=== PATIENT | male | born 1975 | race Caucasian/White ===

== ENCOUNTER 2021-02-03 10:45 | Outpatient (REF) | payer OTHER, SELFPAY | END 2021-02-03 10:46 | disposition home or self-care (01) | LOC: HO.LNP 10:45 | PROVIDERS: Visit Provider Internal Medicine | DX: Z13.89 Encounter for screening for other disorder (principal) ==

== ENCOUNTER 2021-02-03 11:00 | Outpatient (REF) | payer OTHER, SELFPAY ==
[2021-02-03 11:03] LABS: MANUAL DIFF FLAG NO
[2021-02-03 11:17] LABS: Basophils Percent Auto 0.5 % (0-2); Eosinophils Absolute Auto 0.2 X10*3/uL (0.0-0.4); Eosinophils Percent Auto 2.8 % (0-4); Hematocrit 44.5 % (42-52); Hemoglobin 14.4 g/dl (14.0-18.0); Imm Gran Abs Auto 0.02 X10*3/uL (0.00-0.03); Imm Gran Pct Auto 0.3 % (0.0-0.4); Lymphocytes Absolute Auto 1.6 X10*3/uL (1.2-4.9); Lymphocytes Percent Auto 19.9 % (20-40); Mean Corpuscular HGB Conc 32.4 g/dl (31.0-36.0); Mean Corpuscular Hemoglobin 29.4 pg (27.0-33.0); Mean Platelet Volume 11.7 fL (9.4-12.4); Monocytes Absolute Auto 0.7 X10*3/uL (0.1-1.2); Monocytes Percent Auto 8.5 % (2-11); Neutrophils Absolute Auto 5.3 X10*3/uL (2.0-8.3); Platelet Count 226 X10*3/uL (160-400); Red Blood Count 4.89 X10*6/uL (4.60-5.80); Red Cell Distribution Width 13.2 % (11.0-16.0); White Blood Count 7.8 X10*3/uL (4.8-10.8)
[2021-02-03 11:46] LABS: Glucose Urine UA NEG (NEG); Leukocyte Esterase Urine NEG (NEG); Nitrite Urine NEG (NEG); Specific Gravity - Urine 1.015 (1.005-1.025); Urine Blood NEG (NEG); Urine Ketones NEG (NEG); Urine Protein NEG (NEG-TRACE)
[2021-02-03 12:01] LABS: Appearance Urine CLEAR; Color Urine YELLOW
[2021-02-03 12:58] LABS: PSA,Total (Free>4and<10) 1.61 ng/mL (0.00-4.00)
[2021-02-03 13:09] LABS: Alanine Aminotransferase 17 U/L (0-40); Albumin Level 4.3 g/dL (3.5-5.0); Alkaline Phosphatase 51 U/L (39-117); Anion Gap 13 (12-20); Aspartate Amino Transferase 18 U/L (5-37); Bilirubin Total 0.6 mg/dL (0.0-1.0); Blood Urea Nitrogen 16 mg/dL (9-16); Calcium 9.2 mg/dL (8.4-10.2); Carbon Dioxide 27 mmol/L (22-29); Chloride 103 mmol/L (96-108); Cholesterol 200 mg/dL; Estimated Glomerular Filt Rate > 60; Glucose Fasting 94 mg/dL (60-99); HDL Cholesterol 65 mg/dL; LDL Cholesterol Calculated 125 mg/dl; Potassium 4.3 mmol/L (3.3-5.1); Sodium 139 mmol/L (135-145); Total Protein 6.9 g/dL (6.5-8.0); Triglycerides 52 mg/dL
== END 2021-02-03 11:01 | disposition home or self-care (01) ==
LOC: HO.LNP 11:00
PROVIDERS: Visit Provider Internal Medicine
DX: Z00.00 Encounter for general adult medical examination without abnormal findings (principal); Z12.5 Encounter for screening for malignant neoplasm of prostate; E78.00 Pure hypercholesterolemia, unspecified; R73.9 Hyperglycemia, unspecified
CPT/HCPCS: 80053; 80061; 81003; 84153; 85025

== ENCOUNTER 2022-02-03 10:47 | Outpatient (REF) | payer OTHER, SELFPAY ==
[2022-02-03 10:52] LABS: MANUAL DIFF FLAG NO
[2022-02-03 11:14] LABS: Basophils Percent Auto 0.4 % (0-2); Eosinophils Absolute Auto 0.2 X10*3/uL (0.0-0.4); Eosinophils Percent Auto 2.5 % (0-4); Hematocrit 43.3 % (42.0-52.0); Hemoglobin 14.1 g/dl (14.0-18.0); Imm Gran Abs Auto 0.03 X10*3/uL (0.00-0.03); Imm Gran Pct Auto 0.4 % (0.0-0.4); Lymphocytes Absolute Auto 1.6 X10*3/uL (1.2-4.9); Lymphocytes Percent Auto 22.2 % (20-40); Mean Corpuscular HGB Conc 32.6 g/dl (31.0-36.0); Mean Corpuscular Hemoglobin 29.4 pg (27.0-33.0); Mean Corpuscular Volume 90.2 fL (80.0-98.0); Mean Platelet Volume 11.4 fL (9.4-12.4); Monocytes Absolute Auto 0.7 X10*3/uL (0.1-1.2); Monocytes Percent Auto 9.5 % (2-11); Neutrophils Absolute Auto 4.6 x10*3/uL (2.0-8.3); Platelet Count 218 X10*3/uL (160-400); Red Cell Distribution Width 12.9 % (11.0-16.0); White Blood Count 7.1 X10*3/uL (4.8-10.8)
[2022-02-03 11:20] LABS: Appearance Urine CLEAR; Color Urine YELLOW; Glucose Urine UA NEG (NEG); Leukocyte Esterase Urine NEG (NEG); Nitrite Urine NEG (NEG); Specific Gravity - Urine 1.025 (1.005-1.025); Urine Blood NEG (NEG); Urine Ketones NEG (NEG); Urine Protein NEG (NEG-TRACE)
[2022-02-03 11:26] LABS: Alanine Aminotransferase 19 U/L (0-40); Albumin Level 4.1 g/dL (3.5-5.0); Alkaline Phosphatase 49 U/L (39-117); Anion Gap 13 (12-20); Aspartate Amino Transferase 17 U/L (5-37); Bilirubin Total 0.3 mg/dL (0.0-1.0); Blood Urea Nitrogen 17 mg/dL (9-16); Calcium 9.2 mg/dL (8.4-10.2); Carbon Dioxide 26 mmol/L (22-29); Chloride 105 mmol/L (96-108); Cholesterol 204 mg/dL; Estimated Glomerular Filt Rate > 60; Glucose Fasting 96 mg/dL (60-99); HDL Cholesterol 58 mg/dL; LDL Cholesterol Calculated 136 mg/dl; Potassium 4.3 mmol/L (3.3-5.1); Sodium 140 mmol/L (135-145); Total Protein 6.8 g/dL (6.5-8.0); Triglycerides 54 mg/dL
[2022-02-03 11:49] LABS: PSA,Total (Free>4and<10) 1.52 ng/mL (0.00-4.00)
[2022-02-03 12:17] LABS: Mucus Urine 1+ /LPF; RBC Urine 0 /HPF (0); Squamous Epithelial Cell Urine 1+ /LPF; WBC Urine 0 /HPF (0-4)
== END 2022-02-03 10:48 | disposition home or self-care (01) ==
LOC: HO.LNP 10:47
PROVIDERS: Visit Provider Internal Medicine
DX: Z00.00 Encounter for general adult medical examination without abnormal findings (principal); E78.00 Pure hypercholesterolemia, unspecified; Z12.5 Encounter for screening for malignant neoplasm of prostate
CPT/HCPCS: 80053; 80061; 81001; 84153; 85025

== ENCOUNTER 2022-09-15 08:00 | Day surgery (SDC) | payer OTHER, SELFPAY ==
--- NOTE | 2022-09-14 10:48 | HO.ANESPROP2 ---
Documented by User: Татьяна Jackson NP 09/14/22 10:49 HPI - Anesthesia Eval Consult details Narrative: 47yo M for Colonoscopy PMFSH Past Medical History Medical History Arthritis Diverticulitis Kidney stones Surgical History Surgical History History of arthroscopy of right knee Social History Social History Patient Tobacco Use Status: Former Tobacco user Quit Date: 2004 Tobacco use type: Cigarette Cigarettes Per Day: 5 Years Smoked: 5 Smoked in Last 30 Days: No Use of substances other than those prescribed or required for medical reasons: No Are you DNR?: No Advance Directives: No Advance Directives Information Provided: Yes Meds Allergies Allergy/AdvReac Type Severity Reaction Status Date / Time No Known Allergies Allergy Verified 09/15/22 08:09 Home Medications Medication Instructions Recorded Confirmed Last Taken Type ibuprofen 200 mg tablet (Advil) 600 mg PO DAILY 09/14/22 09/15/22 09/08/22 History Exam Exam Date and Time: September 14, 2022 104 Pertinent Lab Results Pertinent Lab Results: Laboratory Tests 02/03/22 02/03/22 07:15 07:15 WBC 7.1 Hgb 14.1 Hct 43.3 Plt Count 218 Sodium 140 Potassium 4.3 Chloride 105 Carbon Dioxide 26 BUN 17 H Creatinine 1.18 Assessment and Plan Assessment Anesthesia Assessment: Chart Reviewed Documented by User: Aimee Ren MD 09/15/22 09:56 PMF Past Medical History Medical History Arthritis Diverticulitis Kidney stones Functional capacity: independent ambulation Family History Family history of problems with anesthesia: No Surgical History Surgical History History of arthroscopy of right knee History of Problems with Anesthesia: No Social History Social History Patient Tobacco Use Status: Former Tobacco user Quit Date: 2004 Tobacco use type: Cigarette Cigarettes Per Day: 5 Years Smoked: 5 Smoked in Last 30 Days: No Use of substances other than those prescribed or required for medical reasons: No Are you DNR?: No Advance Directives: No Advance Directives Information Provided: Yes Meds Allergies Allergy/AdvReac Type Severity Reaction Status Date / Time No Known Allergies Allergy Verified 09/15/22 08:09 Home Medications Medication Instructions Recorded Confirmed Last Taken Type ibuprofen 200 mg tablet (Advil) 600 mg PO DAILY 09/14/22 09/15/22 09/08/22 History Exam Airway Heart: RRR Lungs: CTA Assessment and Plan Final Anesthetic Review Family History of Problems with Anesthesia: No History of Problems with Anesthesia: No ASA Class: II Final Preanesthetic Review: No Changes in Pt Med Stat, Meds/Allgs Chart Reviewed, Consent Obtained/Reviewed and Anes Risks/Benef Reviewed Patient Risk: Low Procedure Risk: Low Anesthetic Plan Anesthetic Plan: MAC: Disposition: Standard PACU
[2022-09-15 08:14] VITALS: BMI 36.6
[2022-09-15 08:17] VITALS: BP 125/81; PULSE 78; RESP 16; TEMP 36.4; O2SAT 97
[2022-09-15] MEDS: Lactated Ringers 1,000 ML 100 ML IVCONT (08:33)
[2022-09-15 10:20] VITALS: BP 102/69; PULSE 63; RESP 16; TEMP 37.1; O2SAT 95
--- NOTE | 2022-09-15 10:21 | PM.OP ---
Brief Operative Note Date of Service: 09/15/22 Pre-op diagnosis: Screening Post-op diagnosis: other (Occasional sigmoid diverticulosis) Procedure: Colonoscopy to the cecum Surgeon: Chidi Jansen Anesthesia: MAC Was an Insurance Policy Clerk used for this Procedure?: No Estimated blood loss (mL): 0 Pathology: none sent Condition: stable Disposition: PACU
[2022-09-15 10:35] VITALS: BP 127/87; PULSE 66; RESP 18; TEMP 36.5; O2SAT 97
--- NOTE | 2022-09-15 10:43 | OP_ITS ---
SURGEON: Chidi Jansen MD INDICATIONS: The patient presents for evaluation of colorectal cancer screening. Full consent has been obtained from him for this, including risks of bleeding and perforation. PREOPERATIVE DIAGNOSIS: Colorectal cancer screening. POSTOPERATIVE DIAGNOSIS: Colorectal cancer screening, occasional diverticulosis, small internal hemorrhoids. PROCEDURE PERFORMED: Colonoscopy to the cecum. ESTIMATED BLOOD LOSS: COMPLICATIONS: ANESTHESIA: Medication Used: Monitored anesthesia care. ASSISTANTS: SPECIMENS: DESCRIPTION OF PROCEDURE: The patient was placed in the left lateral decubitus position. The digital rectal exam revealed no abnormalities. The Olympus video pediatric colonoscope was entered into the rectum and advanced to the cecum with the assistance of abdominal wall pressure. Once in the cecum, I did identify normal-appearing cecal pouch with appendiceal orifice and a normal-appearing ileocecal valve. The entire cecum and ileocecal valve appeared normal. The scope was slowly withdrawn assessing all mucosal surfaces carefully. Preparation was excellent. I did not visualize any sign of polyps, colitis, nor angiodysplasia. There was an occasional diverticulum in the sigmoid colon. In the rectum, scope was retroflexed, visualizing minimal internal hemorrhoids, but no other pathology. The rectal mucosa appeared normal. The scope was straightened and withdrawn from the patient. He tolerated the procedure well and was returned to the recovery area in stable condition. IMPRESSION: 1. Occasional sigmoid diverticulosis. 2. Small internal hemorrhoids. PLAN: Given today's negative exam, I would recommend a followup colonoscopy in 10 years for further screening. He will, otherwise, see me on a p.r.n. basis. Chidi Jansen MD RMW/MODL / [phone]
--- NOTE | 2022-09-15 12:11 | HO.POSTANES ---
Post Anesthesia Evaluation Post Anesthesia Evaluation Vital Signs: Vital Signs Temp Pulse Resp BP Pulse Ox O2 Del Method 09/15/22 10:35 97.7 F 66 18 127/87 97 Room Air 09/15/22 10:20 98.8 F 63 16 102/69 95 Room Air 09/15/22 08:17 97.6 F 78 16 125/81 97 Room Air Anesthesia: Monitored Mental Status: Awake Pain Control: Satisfactory Nausea/Vomiting: None Hydration: Adequate Anesthesia-Related Issues: No Anes. Related Issues
== END 2022-09-15 10:55 | disposition home or self-care (01) ==
PROVIDERS: PCP Internal Medicine; Visit Provider Internal Medicine
PROC: 0DJD8ZZ Inspection of Lower Intestinal Tract, Via Natural or Artificial Opening Endoscopic (ICD-10-PCS; CPT 45378; principal; 2022-09-15 09:20)
DX: Z12.11 Encounter for screening for malignant neoplasm of colon (principal); K57.30 Diverticulosis of large intestine without perforation or abscess without bleeding; K64.8 Other hemorrhoids; M19.90 Unspecified osteoarthritis, unspecified site; Z79.1 Long term (current) use of non-steroidal anti-inflammatories (NSAID); Z87.19 Personal history of other diseases of the digestive system; Z87.442 Personal history of urinary calculi; Z87.891 Personal history of nicotine dependence
CPT/HCPCS: 45378

== ENCOUNTER 2023-02-01 11:04 | Outpatient (REF) | payer OTHER, SELFPAY ==
[2023-02-01 11:06] LABS: MANUAL DIFF FLAG NO
[2023-02-01 11:29] LABS: Appearance Urine Clear; Color Urine Yellow; Glucose Urine UA Negative (Negative); Leukocyte Esterase Urine Negative (Negative); Nitrite Urine Negative (Negative); PH 6.5 (5.0-9.0); Specific Gravity - Urine 1.015 (1.005-1.025); Urine Blood Negative (Negative); Urine Ketones Negative (Negative); Urine Protein Negative (Neg-Trace)
[2023-02-01 11:32] LABS: Basophils Percent Auto 0.5 % (0-2); Eosinophils Absolute Auto 0.2 X10*3/uL (0.0-0.4); Eosinophils Percent Auto 2.9 % (0-4); Hematocrit 45.8 % (42.0-52.0); Hemoglobin 14.9 g/dl (14.0-18.0); Imm Gran Abs Auto 0.01 X10*3/uL (0.00-0.03); Imm Gran Pct Auto 0.2 % (0.0-0.4); Lymphocytes Absolute Auto 1.3 X10*3/uL (1.2-4.9); Lymphocytes Percent Auto 21.4 % (20-40); Mean Corpuscular HGB Conc 32.5 g/dl (31.0-36.0); Mean Corpuscular Hemoglobin 29.6 pg (27.0-33.0); Mean Corpuscular Volume 90.9 fL (80.0-98.0); Mean Platelet Volume 11.8 fL (9.4-12.4); Monocytes Absolute Auto 0.5 X10*3/uL (0.1-1.2); Monocytes Percent Auto 8.5 % (2-11); Neutrophils Absolute Auto 4.2 x10*3/uL (2.0-8.3); Neutrophils Percent Auto 66.5 % (45-73); Platelet Count 218 X10*3/uL (160-400); Red Blood Count 5.04 X10*6/uL (4.60-5.80); Red Cell Distribution Width 12.9 % (11.0-16.0); White Blood Count 6.3 X10*3/uL (4.8-10.8)
[2023-02-01 11:36] LABS: Bacteria Urine None Seen (None Seen); Hyaline Casts Urine 0-2 /LPF (0-2); RBC Urine 0-2 /HPF (0-2); Squamous Epithelial Cell Urine 0-2 /HPF (0-2); WBC Urine 0-5 /HPF (0-5)
[2023-02-01 11:53] LABS: Alanine Aminotransferase 18 U/L (0-40); Albumin Level 4.2 g/dL (3.5-5.0); Alkaline Phosphatase 52 U/L (39-117); Anion Gap 12 (12-20); Aspartate Amino Transferase 17 U/L (5-37); Bilirubin Total 0.8 mg/dL (0.0-1.0); Blood Urea Nitrogen 15 mg/dL (9-16); Calcium 9.5 mg/dL (8.4-10.2); Carbon Dioxide 28 mmol/L (22-29); Chloride 104 mmol/L (96-108); Cholesterol 227 mg/dL; Estimated Glomerular Filt Rate > 60; Glucose Fasting 98 mg/dL (60-99); HDL Cholesterol 55 mg/dL; LDL Cholesterol Calculated 159 mg/dl; Potassium 4.8 mmol/L (3.3-5.1); Sodium 139 mmol/L (135-145); Total Protein 7.1 g/dL (6.5-8.0); Triglycerides 68 mg/dL
[2023-02-01 11:59] LABS: PSA,Total (Free>4and<10) 2.05 ng/mL (0.00-4.00)
== END 2023-02-01 11:05 | disposition home or self-care (01) ==
LOC: HO.LNP 11:04
PROVIDERS: Visit Provider Internal Medicine
DX: Z00.00 Encounter for general adult medical examination without abnormal findings (principal); Z12.5 Encounter for screening for malignant neoplasm of prostate; E78.00 Pure hypercholesterolemia, unspecified
CPT/HCPCS: 80053; 80061; 81001; 84153; 85025

== ENCOUNTER 2023-05-24 09:31 | Outpatient (REF) | payer BC, SELFPAY ==
--- NOTE | ~2023-05-24 | US_ITS ---
EXAMINATION: US EXTRACRANIAL CAROTID DUPLEX, BILATERAL CLINICAL INFORMATION: Abnormal renal veins COMPARISON: None available. TECHNIQUE: Real-time ultrasound and Doppler techniques (integrating B-mode 2-D vascular images, Doppler spectral analysis and color-flow Doppler imaging) were utilized to interrogate the extracranial carotid arteries, the vertebral arteries and proximal subclavian arteries bilaterally. The degree of stenosis is determined by criteria similar to NASCET. FINDINGS: Right Side: 1. There is no significant atherosclerotic plaque seen in the bifurcation/proximal ICA region. 2. The common carotid artery PSV proximally is 70.3 cm/s and distally 76.6 cm/s. 3. The proximal internal carotid artery velocities are 46.2 cm/s systolic and 26.7 cm/s diastolic. 4. The proximal external carotid artery PSV is 80.5 cm/s. 5. The vertebral artery shows antegrade flow. 6. The subclavian artery waveforms are normal. Left Side: 1. There is no significant atherosclerotic plaque seen in the bifurcation/proximal ICA region. 2. The common carotid artery PSV proximally is 101 cm/s and distally 73.9 cm/s. 3. The proximal internal carotid artery velocities are 51.9 cm/s systolic and 25.9 cm/s diastolic. 4. The proximal external carotid artery PSV is 59.7 cm/s. 5. The vertebral artery shows antegrade flow. 6. The subclavian artery waveforms are normal. US/US carotid duplex BI IMPRESSION: 1. RIGHT: Normal right internal carotid artery without atherosclerotic plaque or hemodynamically significant stenosis. 2. LEFT: Normal left internal carotid artery without atherosclerotic plaque or hemodynamically significant stenosis.
== END 2023-05-24 09:32 | disposition home or self-care (01) ==
LOC: HO.US 09:31
PROVIDERS: PCP Internal Medicine; Visit Provider Internal Medicine
DX: H35.09 Other intraretinal microvascular abnormalities (principal)
CPT/HCPCS: 93880

== ENCOUNTER 2023-10-15 13:03 | Outpatient (REF) | payer BC, SELFPAY ==
--- NOTE | ~2023-10-15 | XR_ITS ---
EXAMINATION: XR CHEST CLINICAL INFORMATION: Pleurisy COMPARISON: 08/04/2019 TECHNIQUE: 2 views of the chest were obtained. FINDINGS: Lung volumes are low. There is minimal elevation of the right hemidiaphragm, as before. Streaky opacity at the right lung base is unchanged and most likely represents compressive atelectasis. Sclerosis is seen at the first costochondral junction bilaterally, right greater than left, as seen before The cardiomediastinal silhouette is stable. No pleural effusion. No acute bony abnormality. XR/XR chest 2V IMPRESSION: No acute cardiopulmonary disease.
== END 2023-10-15 13:04 | disposition home or self-care (01) ==
LOC: HO.XRAY 13:03
PROVIDERS: PCP Internal Medicine; Visit Provider Internal Medicine
DX: R09.1 Pleurisy (principal)
CPT/HCPCS: 71046

== ENCOUNTER 2024-01-03 12:11 | Outpatient (REF) | payer BC, SELFPAY ==
--- NOTE | ~2024-01-03 | XR_ITS ---
EXAMINATION: XR RIBS, LEFT CLINICAL INFORMATION: Closed fracture of multiple ribs left side. COMPARISON: 10/15/2023 chest. TECHNIQUE: 5 views of the left ribs. FINDINGS: Lung volumes are low. There is no gross pneumothorax. Stable cardiomediastinal silhouette. Persistent bibasilar streaky opacities characteristic of atelectasis, although an infectious/inflammatory processes should also be considered. Radiopaque marker placed by technologist to indicate the area of concern indicated by the patient overlying lower left ribs. Possible subtle minimally displaced fracture along the anterior aspect of the left eighth rib is difficult to evaluate due to overlying soft tissues. XR/XR ribs LT min 3V w CXR1V IMPRESSION: Persistent bibasilar streaky opacities characteristic of atelectasis, although an infectious/inflammatory processes should also be considered. Radiopaque marker placed by technologist to indicate the area of concern indicated by the patient overlying lower left ribs. Possible subtle minimally displaced fracture along the anterior aspect of the left eighth rib is difficult to evaluate due to overlying soft tissues.
== END 2024-01-03 12:12 | disposition home or self-care (01) ==
LOC: HO.XRAY 12:11
PROVIDERS: PCP Internal Medicine; Visit Provider Internal Medicine
DX: S22.42XD Multiple fractures of ribs, left side, subsequent encounter for fracture with routine healing (principal)
CPT/HCPCS: 71101

== ENCOUNTER 2024-05-12 10:43 | Outpatient (REF) | payer BC, SELFPAY ==
[2024-05-12 10:51] LABS: MANUAL DIFF FLAG NO
[2024-05-12 11:23] LABS: Basophils Percent Auto 0.5 % (0-2); Eosinophils Absolute Auto 0.2 X10*3/uL (0.0-0.4); Eosinophils Percent Auto 2.7 % (0-4); Hematocrit 44.5 % (42.0-52.0); Hemoglobin 14.8 g/dl (14.0-18.0); Imm Gran Abs Auto 0.02 X10*3/uL (0.00-0.03); Imm Gran Pct Auto 0.3 % (0.0-0.4); Lymphocytes Absolute Auto 1.3 X10*3/uL (1.2-4.9); Lymphocytes Percent Auto 20.8 % (20-40); Mean Corpuscular HGB Conc 33.3 g/dl (31.0-36.0); Mean Corpuscular Hemoglobin 29.6 pg (27.0-33.0); Mean Platelet Volume 11.5 fL (9.4-12.4); Monocytes Absolute Auto 0.5 X10*3/uL (0.1-1.2); Monocytes Percent Auto 8.5 % (2-11); Neutrophils Absolute Auto 4.1 x10*3/uL (2.0-8.3); Neutrophils Percent Auto 67.2 % (45-73); Platelet Count 219 X10*3/uL (160-400); Red Cell Distribution Width 13.1 % (11.0-16.0)
[2024-05-12 11:24] LABS: Appearance Urine Clear; Color Urine Yellow; Glucose Urine UA Negative (Negative); Leukocyte Esterase Urine Negative (Negative); Nitrite Urine Negative (Negative); PH 5.5 (5.0-9.0); Urine Blood Negative (Negative); Urine Ketones Negative (Negative); Urine Protein Negative (Neg-Trace)
[2024-05-12 12:04] LABS: Alanine Aminotransferase 15 U/L (0-40); Albumin Level 4.2 g/dL (3.5-5.0); Alkaline Phosphatase 52 U/L (39-117); Anion Gap 14 (12-20); Aspartate Amino Transferase 19 U/L (5-37); Bilirubin Total 0.7 mg/dL (0.0-1.0); Blood Urea Nitrogen 13 mg/dL (9-16); Calcium 9.5 mg/dL (8.4-10.2); Carbon Dioxide 27 mmol/L (22-29); Chloride 104 mmol/L (96-108); Cholesterol 170 mg/dL (<200); Estimated Glomerular Filt Rate > 60; Glucose Fasting 89 mg/dL (60-99); HDL Cholesterol 44 mg/dL (>40); LDL Cholesterol Calculated 115 mg/dL (<100); Potassium 4.3 mmol/L (3.3-5.1); Sodium 141 mmol/L (135-145); Total Protein 7.3 g/dL (6.5-8.0); Triglycerides 56 mg/dL (<150)
== END 2024-05-12 10:44 | disposition home or self-care (01) ==
LOC: HO.LNP 10:43
PROVIDERS: Visit Provider Internal Medicine
DX: Z00.00 Encounter for general adult medical examination without abnormal findings (principal); E78.00 Pure hypercholesterolemia, unspecified
CPT/HCPCS: 80053; 80061; 81003; 85025

== ENCOUNTER 2024-05-19 13:16 | Outpatient (REF) | payer BC, SELFPAY ==
[2024-05-19 14:00] LABS: PSA,Total (Free>4and<10) 0.65 ng/mL (0.00-4.00)
== END 2024-05-19 13:17 | disposition home or self-care (01) ==
LOC: HO.LNP 13:16
PROVIDERS: Visit Provider Internal Medicine
DX: Z00.00 Encounter for general adult medical examination without abnormal findings (principal); Z12.5 Encounter for screening for malignant neoplasm of prostate
CPT/HCPCS: 84153

== ENCOUNTER 2025-03-16 09:57 | Emergency (ER) | payer BC, SELFPAY ==
--- NOTE | ~2025-03-16 | XR_ITS ---
EXAMINATION: XR HIP 1 VIEW RIGHT WITH PELVIS HISTORY: atraumatic R hip pain COMPARISON: Comparison is made with the prior examination dated 11/13/2019. FINDINGS: A single AP view of the pelvis and two views of the right hip are submitted. Osseous mineralization is normal. There is no fracture or dislocation. The joint space is maintained. There are rounded densities in the soft tissues adjacent to the greater trochanter. XR/XR hip RT w PEL1V IMPRESSION: Rounded densities adjacent to the greater trochanter which could represent loose bodies. No osseous abnormality is identified. Electronically signed by: Chidi Pineda MD 03/16/2025 10:45 AM EDT
--- NOTE | ~2025-03-16 | CT_ITS ---
EXAMINATION: CT PELVIS WITHOUT CONTRAST CLINICAL INFORMATION: Right hip pain. COMPARISON: Correlated to x-ray dated March 16, 2025. TECHNIQUE: Helical scanning was performed with submillimeter collimation through the pelvis. Sagittal and coronal multiplanar 2-D reconstructions were obtained. This CT examination was performed using dose optimization techniques as appropriate, variously including the following: *Automated exposure control *Adjustment of mA and/or kV according to patient size (this includes techniques or standardized protocols for targeted exams where dose is matched to indication/reason for exam; i.e. extremities or head) *Use of iterative reconstruction technique DLP: 620 mGy centimeter. FINDINGS: PELVIS: Small fat-containing umbilical hernia. ) Normal. There is concentric wall thickening involving the distal descending colon into the mid sigmoid colon and to a lesser extent rectosigmoid colon junction. Gas and fluid-filled mildly prominent distal small bowel loops. Fat-containing left inguinal scrotal hernia. OSSEOUS STRUCTURES: The coxofemoral joints are intact with normal alignment. No gross joint effusion. Sclerosis at the sacroiliac joints bilaterally. Mild degenerative changes in the symphysis bolus. No periosteal bone reaction. Minimal sclerosis and subchondral cyst formation along the articular surface of the acetabulum, bilaterally. The proximal femurs are intact. Spondylosis at L4-5 and L5-S1 levels. Sacrococcyx is intact. Spina bifida occulta S1.. CT/CT pelvis wo IV con IMPRESSION: No acute fracture or dislocation. Probable acute colitis, left hemicolon. Small fat-containing umbilical hernia. Small to moderate size fat-containing left inguinal scrotal hernia. Spondylosis L4-5 to L5-S1. Electronically signed by: Nabil Logan MD 03/16/2025 12:33 PM EDT
--- NOTE | ~2025-03-16 | XR_ITS ---
EXAMINATION: XR KNEE 4 OR MORE VIEWS RIGHT HISTORY: atraumatic R knee pain COMPARISON: There are no prior studies available for comparison. FINDINGS: Four views of the right knee are submitted. Osseous mineralization is normal. There is an exostosis off the lateral aspect of the distal femoral metaphysis. There is no fracture or dislocation. The joint spaces are preserved. The soft tissues are unremarkable. There is no joint effusion. XR/XR knee RT 4V IMPRESSION: Exostosis off the lateral aspect of the distal femoral metaphysis. Otherwise unremarkable examination of the right knee. Electronically signed by: Chidi Pineda MD 03/16/2025 10:47 AM EDT
[2025-03-16 10:12] VITALS: BP 131/75; PULSE 87; RESP 16; TEMP 36.2; O2SAT 97; BMI 29.8
--- NOTE | 2025-03-16 10:15 | ED_ITS ---
HPI - Extremity Injury (Lower) General Chief Complaint: Extremity Injury, Lower Stated Complaint: r hip and knee pain Time Seen by Provider: 03/16/25 11:06 Source: patient and family (patient's ) Mode of arrival: wheelchair Limitations: no limitations History of Present Illness ED Provider: Zara Hou PA-C HPI Narrative: Patient is a 49 year old assigned male at with a history of kidney stones and diverticulitis presenting to the emergency department today with right hip and knee pain. Patient states that his right hip has been significantly painful and his right knee began to hurt. 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 Patient denies any dizziness, lightheadedness, abdominal pain, nausea, vomiting, fever, chills, blurry vision, double vision, loss of vision, chest pain, difficulty breathing, shortness of breath, back pain, night sweats, pain with urination, increased urinary frequency, increased urinary urgency, blood in his urine or stool, syncope or a near syncopal episode, bowel incontinence, bladder incontinence, or any other complaints at this time. Related Data Home Medications ?Medication ?Instructions ?Recorded ?Confirmed ibuprofen 200 mg tablet (Advil) 600 mg PO DAILY 09/15/22 Previous Rx's ?Medication ?Instructions ?Recorded prednisone 20 mg tablet See Rx Instructions .Route 0 03/16/25 .COMPLEX 9 days #18 tabs Allergies Allergy/AdvReac Type Severity Reaction Status Date / Time No Known Allergies Allergy Verified 03/16/25 10:17 Review of Systems Constitutional: Constitutional: Reports no additional constitutional complaints, Denies chills, Denies fever(s) and Denies night sweats Eyes: Eyes: Reports no additional eye complaints, Denies blurry vision, Denies change in vision, Denies diplopia, Denies eye discharge, Denies loss of vision and Denies eye pain ENT: Denies dizziness Cardiovascular: Cardiovascular: Reports no additional cardiovascular complaints, Denies chest pain, Denies lightheadedness, Denies Loss of Consciousness and Denies dyspnea Respiratory: Respiratory: Reports no additional respiratory complaints and Denies dyspnea Gastrointestinal: Gastrointestinal: Reports no additional gastrointestinal complaints, Denies abdominal pain, Denies melena, Denies hematochezia, Denies change in bowel habits and Denies change in stool character Genitourinary: Genitourinary: Reports no additional male genitourinary complaints, Denies hematuria, Denies oliguria, Denies difficulty urinating, Denies dysuria, Denies urinary frequency, Denies urinary hesitancy, Denies urinary incontinence and Denies urinary urgency Musculoskeletal: Musculoskeletal: Reports no additional musculoskeletal complaints, Denies numbness and Denies tingling Comments: Right knee and right hip pain Neurologic: Denies dizziness, Denies loss of vision, Denies numbness and Denies tingling Psychiatric: Psychiatric: Reports no additional psychiatric complaints Endocrine: Endocrine: Reports no additional endocrine complaints Hematologic/Lymphatic: Hematologic/Lymphatic: Reports no additional hematologic/lymphatic complaints Allergic/Immunologic: Allergic/Immunologic: Reports no additional allergic/immunologic complaints PMFSH Past Medical History Attestation statement: The following information was validated with the patient. (Patient's provided additional history and confirmed the history provided by the patient) Source: old records reviewed, obtained from family (patient's provided additional history and confirmed the history provided by the patient.) and nursing notes reviewed Medical History Diverticulitis Arthritis Kidney stones Surgical History History of arthroscopy of right knee Social History Social History Patient Tobacco Use Status: Former Tobacco user Tobacco use type: Cigarette Cigarettes Per Day: 5 Years Smoked: 5 Smoked in Last 30 Days: No Use of substances other than those prescribed or required for medical reasons: No Advance Directives: No Advance Directives Information Provided: No Do you have a plan to hurt others: No Plan Physical Exam Vital Signs: Vital Signs: Last Vital Signs Temp 97.2 F 03/16/25 12:58 Pulse 71 03/16/25 12:58 Resp 18 03/16/25 12:58 BP 116/72 03/16/25 12:58 Pulse Ox 95 03/16/25 12:58 O2 Del Method Room Air 03/16/25 12:58 BMI result Body Mass Index 29.8 Const: General: cooperative, no acute distress, alert and awake Nutritional Appearance: well nourished Orientation/consciousness: patient oriented x3 HEENT: Head: Yes normal to inspection and Yes atraumatic Ears: hearing grossly normal bilaterally and external ears normal General nose exam: Normal external nose present, no nasal discharge noted and no epistaxis Face and sinus: Yes normal facial exam, No abrasion and No laceration Mouth: Normal oral and palatal mucosa present, no drooling and no muffled voice Eyes: General: appearance normal, both eyes and all related structures Periorbital: periorbital findings normal Eyelids: Yes eyelids normal Conjunctivae: conjunctivae normal Pupils: Equal, round and reactive pupils present EOM: EOMs intact bilaterally Neck: Neck: Yes normal visual inspection, Yes full ROM and Yes no lymphadenopathy Resp: Effort & Inspection: normal respiratory effort and able to speak in complete sentences Neuro: General: patient oriented x3, moves all extremities and CN's II-XI intact bilaterally Cranial nerves: Yes Equal, round and reactive pupils present Cognition (Neuro): normal cognition Extrem: General: Yes normal to inspection, Yes full ROM and Yes capillary refill normal Psych: Appearance: grossly normal Mental Status: mental status grossly normal Affect: normal affect Attitude: cooperative Thought process: Normal thought process present Thought content: Normal thought content present Insight: Good insight present (Psych) Course Course Course Narrative: 03/16/25 1016 YEISON Mcleod This is a Rapid Medical Examination (RME) performed by Casey Schroeder PA-C in triage. Full HPI, ROS, assessment and treatment plan per primary provider in the Main ED. Hx: 49 yo M here for eval of right hip and right knee pain x days. 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 did not hear pop. pain initially began in R hip, now R knee is painful, believes because of the way he is having to walk. using daughters crutches. Plan: xrs Medications Administered Discontinued Medications Generic Name Dose Route Start Last Admin Trade Name Freq PRN Reason Stop Dose Admin Ketorolac Tromethamine 15 mg 03/16/25 12:39 03/16/25 13:11 Ketorolac Tromethamine 15 Mg/Ml Vial IM 03/16/25 12:40 15 mg ONCE ONE Administration Medical Decision Making Medical Decision Making MDM Narrative: Patient is a 49 year old assigned male at with a history of kidney stones and diverticulitis presenting to the emergency department today with right hip and knee pain. Patient's physical exam was unremarkable. Patient's right knee x- ray showed no acute process. Patient's right hip x-ray showed rounded densities adjacent to the greater trochanter but otherwise unremarkable. Patient's pelvis CT showed no acute process but did show incidental findings of acute left sided colitis, small umbilical hernia, small left inguinal scrotal hernia, and spondylosis L4-5 to L5-S1. Patient has no symptoms or evidence of colitis. Patient's clinical presentation is most consistent with a right hip bursitis. I explained my physical exam findings as well as all test results to the patient and the patient's . I answered all questions asked by the patient and the patient's . I stressed the importance of the patient taking his medication as directed (either prescribed or as the over the counter packaging recommends). I stressed the importance of the patient following up with his primary care provider and if pain persists >2 weeks - the orthopedic team. I stressed the importance of the patient returning to the emergency department immediately if his symptoms were to worsen or if he were to develop any dizziness, shortness of breath, difficulty breathing, chest pain, blurry vision, loss of vision, nausea, vomiting, abdominal pain, fever, chills, back pain, or any other complaints. Patient and the patient's verbalized agreement and understanding with this treatment plan and discharge. Differential Diagnosis Differential Diagnoses: The differential diagnosis associated with the presentation includes Hip fracture Hip dislocation Hip pain Hip strain Hip sprain Hip bursitis Admission/Observation Consideration of admission/observation: Escalation of care including admission/observation considered Patient would have been admitted to the hospital had his work up had any findings where hospital admission was appropriate and his clinical presentation warranted hospital admission. Independent Interpretation I performed an independent interpretation of an: Plain X-Ray and CT Scan Interpretation: My interpretation is in agreement with the radiologist's impression of these imaging studies. EXAMINATION: XR HIP 1 VIEW RIGHT WITH PELVIS HISTORY: atraumatic R hip pain COMPARISON: Comparison is made with the prior examination dated 11/13/2019. FINDINGS: A single AP view of the pelvis and two views of the right hip are submitted. Osseous mineralization is normal. There is no fracture or dislocation. The joint space is maintained. There are rounded densities in the soft tissues adjacent to the greater trochanter. XR/XR hip RT w PEL1V IMPRESSION: Rounded densities adjacent to the greater trochanter which could represent loose bodies. No osseous abnormality is identified. Electronically signed by: Chidi Pineda MD 03/16/2025 10:45 AM EDT RP Dictated By: Chidi Pineda MD Signed By: Electronically signed by Chidi Pineda MD 03/16/25 1045 Report Number: [id number]: Total DLP = 620.00 mGy-cm EXAMINATION: CT PELVIS WITHOUT CONTRAST CLINICAL INFORMATION: Right hip pain. COMPARISON: Correlated to x-ray dated March 16, 2025. TECHNIQUE: Helical scanning was performed with submillimeter collimation through the pelvis. Sagittal and coronal multiplanar 2-D reconstructions were obtained. This CT examination was performed using dose optimization techniques as appropriate, variously including the following: *Automated exposure control *Adjustment of mA and/or kV according to patient size (this includes techniques or standardized protocols for targeted exams where dose is matched to indication/reason for exam; i.e. extremities or head) *Use of iterative reconstruction technique DLP: 620 mGy centimeter. FINDINGS: PELVIS: Small fat-containing umbilical hernia. Normal. There is concentric wall thickening involving the distal descending colon into the mid sigmoid colon and to a lesser extent rectosigmoid colon junction. Gas and fluid-filled mildly prominent distal small bowel loops. Fat-containing left inguinal scrotal hernia. OSSEOUS STRUCTURES: The coxofemoral joints are intact with normal alignment. No gross joint effusion. Sclerosis at the sacroiliac joints bilaterally. Mild degenerative changes in the symphysis bolus. No periosteal bone reaction. Minimal sclerosis and subchondral cyst formation along the articular surface of the acetabulum, bilaterally. The proximal femurs are intact. Spondylosis at L4-5 and L5-S1 levels. Sacrococcyx is intact. Spina bifida occulta S1.. CT/CT pelvis wo IV con IMPRESSION: No acute fracture or dislocation. Probable acute colitis, left hemicolon. Small fat-containing umbilical hernia. Small to moderate size fat-containing left inguinal scrotal hernia. Spondylosis L4-5 to L5-S1. Electronically signed by: Nabil Logan MD 03/16/2025 12:33 PM EDT RP Dictated By: Nabil Cowan MD Signed By: Electronically signed by Nabil Dixon MD 03/16/25 1233 Radiology Impression Discussion of test interpretation with radiology: I have reviewed the radiologist's reading. Independent Historian Clinical information obtained from an independent historian. History obtained from or confirmed by: Spouse (patient's provided additional history and confirmed the history provided by the patient. ) Discharge Plan Discharge Clinical Impression: Colitis, Spondylosis Acute hip pain Qualifiers: Laterality: right Qualified Code(s): M25.551 - Pain in right hip Bursitis Qualifiers: Bursitis location: hip Hip bursitis location: unspecified Laterality: right Qualified Code(s): M70.71 - Other bursitis of hip, right hip Inguinal hernia Qualifiers: Obstruction and gangrene presence: without obstruction or gangrene Laterality: unilateral Recurrence: not specified as recurrent Qualified Code(s): K40.90 - Unilateral inguinal hernia, without obstruction or gangrene, not specified as recurrent Hernia, umbilical Qualifiers: Obstruction and gangrene presence: without obstruction or gangrene Qualified Code(s): K42.9 - Umbilical hernia without obstruction or gangrene Patient Disposition: Home, Self-Care Instructions: Hip Bursitis (ED), Arthralgia (ED), Hip Pain (ED) Additional Instructions: Your imaging today revealed no emergent process causing your pain. Your clinical presentation is most consistent with right hip bursitis. Your CT scan had multiple incidental findings that you should follow up with your primary care provider about: Left sided colitis (inflammation of the colon of which you have no symptoms) Small umbilicla hernia Small to moderate sized left inguinal / scrotal hernia Spondylosis L4-L5 + L5-S1 Take your medication as prescribed. If you pain persists >2 weeks, call to establish and follow up with the orthopedic group. Follow up with your primary care provider. Return to the emergency department immediately if your symptoms worsen or if you develop any numbness, tingling, dizziness, shortness of breath, difficulty breathing, chest pain, blurry vision, loss of vision, nausea, vomiting, abdominal pain, fever, chills, back pain, or any other complaints. Please see the information below about our Patient Portal. If you are not yet enrolled in the [facility] Patient Portal, you will receive an enrollment email invitation following your visit to any [facility] care setting. You may also self-enroll in the Patient Portal by visiting our website: [email or web address] The following information is required to access the Patient Portal: - Your [facility] Medical Record Number - Your personal home email address (must match what is in your electronic medical record, Registration staff can assist with this) - Name - Date of Capabilities of the Patient Portal: - Message some providers - View upcoming appointments - Access your health summary, medical history, and visit history - View current conditions and allergies - View procedure and lab results - View your medications, including guidelines, side effects, and precautions - Complete pre-appointment questionnaires requested by your provider - Ready summary reports of your office visits and procedures To access the Patient Portal Mobile [employer], follow these directions: - Search [employer] in the [employer] Store or [employer] Store - Download the [place] - Search for [facility] - Enter your login/password Prescriptions: New prednisone 20 mg tablet See Rx Instructions .ROUTE .COMPLEX 9 Days Qty: 18 0RF Rx Instructions: 20 mg orally, Take 3 tablets for 3 days THEN; Take 2 tablets for 3 days THEN; Take 1 tablet for 3 days No Action ibuprofen [Advil] 200 mg Tablet 600 mg PO DAILY Referrals: [facility] [Provider Group] Referral Note: If your pain persists >2 weeks, call to establish and follow up with the orthopedic team. Kong Brady MD [Primary Care Provider, Medical] Interventions: ED Discharge Assessment Last Done: 03/16/25 12:58 Discharge Date/Time: 03/16/25 13:16 Print Language: Uzbek
[2025-03-16 12:58] VITALS: BP 116/72; PULSE 71; RESP 18; TEMP 36.2; O2SAT 95
--- OUTSIDE RECORDS SUMMARY | 2025-03-16 13:50 | XMS_ITS | Patient Health Record ---
Author Organization Kong Brady MD Address [address] [place], [place] [id number] Care Team Providers Care Furnace Cleaner Name Role Phone Kong Brady Primary Care Provider Allergies No Known Allergies Results Component Value Reference Range Notes Sugar Nuno Reviewed date:05/12/2024 04:01:54 PM Interpretation: Performing Lab:[facility], [address] [place] [phone] Notes/Report: Sugar Nuno See Note Specimen held untested for 24 hours; Call to request Chemistry testing. UA CC w/rflx Micro + Cult Reviewed date:05/13/2024 08:49:13 AM Interpretation: Performing Lab:[facility], [address] [place] [phone] Notes/Report: Urine, Clean Catch Color Urine Yellow Appearance Urine Clear PH 5.5 5.0-9.0 Glucose Urine UA Negative Negative mg/dL Urine Blood Negative Negative Specific Vale - Urine 1.010 1.005-1.025 Urine Protein Negative Neg-Trace mg/dL Urine Ketones Negative Negative mg/dL Nitrite Urine Negative Negative Leukocyte Esterase Urine Negative Negative Complete Blood Count Auto Di ff Reviewed date:05/13/2024 08:44:41 AM Interpretation: Performing Lab:[facility], [address] [place] [phone] Notes/Report: White Blood Count 6.0 4.8-10.8 X10*3/uL Red Blood Count 5.00 4.60-5.80 X10*6/uL Hemoglobin 14.8 14.0-18.0 g/dl Hematocrit 44.5 42.0-52.0 % Mean Corpuscular Volume 89.0 80.0-98.0 fL Mean Corpuscular Hemoglobin 29.6 27.0-33.0 pg Mean Corpuscular HGB Conc 33.3 31.0-36.0 g/dl Red Cell Distribution Width 13.1 11.0-16.0 % Platelet Count 219 160-400 X10*3/uL Mean Platelet Volume 11.5 9.4-12.4 fL Neutrophils Percent Auto 67.2 45-73 % Imm Gran Pct Auto 0.3 0.0-0.4 % Lymphocytes Percent Auto 20.8 20-40 % Monocytes Percent Auto 8.5 2-11 % Eosinophils Percent Auto 2.7 0-4 % Basophils Percent Auto 0.5 0-2 % NRBC Pct Auto 0.0 0.0-0.2 /100WBC Neutrophils Absolute Auto 4.1 2.0-8.3 x10*3/u L Imm Gran Abs Auto 0.02 0.00-0.03 X10*3/uL Lymphocytes Absolute Auto 1.3 1.2-4.9 X10*3/u L Monocytes Absolute Auto 0.5 0.1-1.2 X10*3/uL Eosinophils Absolute Auto 0.2 0.0-0.4 X10*3/u L Basophils Absolute Auto 0.0 0.0-0.2 X10*3/uL NRBC Abs Auto 0.000 0.0-0.012 X10*3/uL Comprehensive [place]. Panel Fa st Reviewed date:05/13/2024 08:46:09 AM Interpretation: Performing Lab:[facility], [address] [place] [phone] Notes/Report: Sodium 141 135-145 mmol/L Potassium 4.3 3.3-5.1 mmol/L Chloride 104 96-108 mmol/L Carbon Dioxide 27 22-29 mmol/L Anion Gap 14 12-20 Blood Urea Nitrogen 13 9-16 mg/dL Creatinine 1.00 0.5-1.4 mg/dL Estimated Glomerular Filt Rate > 60 NOTE: For -[place] individuals, multiply the result by 1.210. Chronic Kidney Disease: Estimated GFR < 60 mL/min/1.73m2 Severe Kidney Disease: Estimated GFR < 15 mL/min/1.73m2 Glucose Fasting 89 60-99 mg/dL Calcium 9.5 8.4-10.2 mg/dL Bilirubin Total 0.7 0.0-1.0 mg/dL Aspartate Amino Transferase 19 5-37 U/L Alanine Aminotransferase 15 0-40 U/L Total Protein 7.3 6.5-8.0 g/dL Albumin Level 4.2 3.5-5.0 g/dL Alkaline Phosphatase 52 39-117 U/L Lipid Panel Reviewed date:05/12/2024 04:03:05 PM Interpretation: Performing Lab:[facility], [address] [place] [phone] Notes/Report: Triglycerides 56 <150 mg/dL Desirable Triglyceride: less than 150 mg/dL Borderline High Triglyceride 150-199 mg/dL High Triglyceride: 200-499 mg/dL Very High Triglyceride: greater than or equal to 5OO mg/dL Cholesterol 170 <200 mg/dL Desirable Cholesterol: less than 200 mg/dL Borderline High Cholesterol: 200-239 mg/dL High Cholesterol: greater than 239 mg/dL LDL Cholesterol Calculated 115 <100 mg/dL Desirable LDL: less than 100 mg/dL Near Optimal/Above Optimal LDL: 110-129 mg/dL Borderline High LDL: 130-159 mg/dL High LDL: 160-189 mg/dL Very High LDL: greater than or equal to 190 mg/dL HDL Cholesterol 44 >40 mg/dL Desirable HDL: greater than 40 mg/dL Note: This HDL assay may give artificially low results in patients with liver disease. Sugar Nuno Reviewed date:05/19/2024 04:54:45 PM Interpretation: Performing Lab:[facility], [address] [place] [phone] Notes/Report: Sugar Nuno See Note Specimen held untested for 24 hours; Call to request Chemistry testing. Hold Green Gel Reviewed date:05/19/2024 04:54:57 PM Interpretation: Performing Lab:[facility], [address] [place] [phone] Notes/Report: Sugar Green Gel See Note Specimen held untested for 24 hours; Call to request Chemistry testing. Occult Blood, Stool, Guaiac Reviewed date:05/19/2024 01:41:08 PM Interpretation:Negative Performing Lab: Notes/Report: Negative Occult Blood, Stool, Guaiac Neg PSA,Total (Free>4and<10) Reviewed date:05/20/2024 07:26:51 AM Interpretation: Performing Lab:[facility], [address] [place] [phone] Notes/Report: PSA,Total (Free>4and<10) 0.65 0.00-4.00 ng/mL A Free PSA was not performed: The percentage of Free PSA can be used to enhance the differentiation of prostate cancer from benign prostatic disease in subjects whose PSA levels are between 4.0 and 10.0 ng/mL. For subjects whose PSA levels are below 4.0 or above 10.0 ng/mL, the risk of prostate cancer is determined on the basis of the PSA alone. Therefore the % Free PSA is recommended only for those subjects whose PSA levels are between 4.0 and 10.0 ng/mL. PSA methodology: Grier Alinity i Chemiluminescent Microparticle Immunoassay (CMIA) CT pelvis wo con Reviewed date:03/16/2025 12:52:31 PM Interpretation: Performing Lab: Notes/Report: [address] [address] [address] Scan Report Signed Patient: Juarez Ludwig MR#: [id number] : 1975 Acct:[id number] Age/Sex: 49 / M ADM Date: 03/16/25 Loc: HO.ED Attending Dr: Ordering Physician: Zara Hou Date of Service: 03/16/25 Procedure(s): CT pelvis wo IV con Accession Number(s): [id number] cc: Kong Brady MD; Zara Hou Report Number: [id number]: Total DLP = 620.00 mGy-cm EXAMINATION: CT PELVIS WITHOUT CONTRAST CLINICAL INFORMATION: Right hip pain. COMPARISON: Correlated to x-ray dated March 16, 2025. TECHNIQUE: Helical scanning was performed with submillimeter collimation through the pelvis. Sagittal and coronal multiplanar 2-D reconstructions were obtained. This CT examination was performed using dose optimization techniques as appropriate, variously including the following: *Automated exposure control *Adjustment of mA and/or kV according to patient size (this includes techniques or standardized protocols for targeted exams where dose is matched to indication/reason for exam; i.e. extremities or head) *Use of iterative reconstruction technique DLP: 620 mGy centimeter. FINDINGS: PELVIS: Small fat-containing umbilical hernia. ) Normal. There is concentric wall thickening involving the distal descending colon into the mid sigmoid colon and to a lesser extent rectosigmoid colon junction. Gas and fluid-filled mildly prominent distal small bowel loops. Fat-containing left inguinal scrotal hernia. OSSEOUS STRUCTURES: The coxofemoral joints are intact with normal alignment. No gross joint effusion. Sclerosis at the sacroiliac joints bilaterally. Mild degenerative changes in the symphysis bolus. No periosteal bone reaction. Minimal sclerosis and subchondral cyst formation along the articular surface of the acetabulum, bilaterally. The proximal femurs are intact. Spondylosis at L4-5 and L5-S1 levels. Sacrococcyx is intact. Spina bifida occulta S1.. CT/CT pelvis wo IV con IMPRESSION: No acute fracture or dislocation. Probable acute colitis, left hemicolon. Small fat-containing umbilical hernia. Small to moderate size fat-containing left inguinal scrotal hernia. Spondylosis L4-5 to L5-S1. Electronically signed by: Nabil Logan MD 03/16/2025 12:33 PM EDT Dictated By: Nabil Cowan MD Signed By: <Electronically signed by Nabil Dixon MD in OV> 03/16/25 1233 DD/ 1041 TD/TT: 03/16/25 1214 Personnel Counselor: [address] [address] [address] Scan Report Signed Patient: Nito Ludwig MR#: [id number] : 1975 Acct:[id number] Age/Sex: 49 / M ADM Date: 03/16/25 Loc: .ED Attending Dr: Ordering Physician: Zara Hou Date of Service: 03/16/25 Procedure(s): CT pel vis wo IV con Accession Number(s): [id number] cc: Kong Brady MD; Zara Hou Report Number: [id number]: Total DLP = 620.00 mGy-cm EXAMINATION: CT PELVIS WITHOUT CONTRAST CLINICAL INFORMATION: Right hip pain. COMPARISON: Correlated to x-ray dated March 16, 2025. TECHNIQUE: Helical scanning was performed with submillimeter collimation through the pelvis. Sagittal and coronal multiplanar 2-D reconstructions were obtained. This CT examination was performed using dose optimization techniques as appropriate, various ly including the following: *Automated exposure control *Adjustment of mA and/or kV according to patient size (this includes techniques or standardized protocols for targeted exams where dose is matched to indication/reason for exam; i.e. extremities or head) *Use of iterative reconstruction technique DLP: 620 mGy centimeter. FINDINGS: PELVIS: Small fat-containing umbilical hernia. ) Normal. There is concentric wall thickening involving the distal descending colon into the mid sigmoid colon and to a lesser extent rectosigmoid colon junction. Gas and fluid-filled mildly prominent distal small bowel loops. Fat-containing left inguinal scrotal hernia. OSSEOUS STRUCTURES: The coxofemoral joints are intact with normal alignment. No gross joint effusion. Sclerosis at the sacroiliac joints bilaterally. Mild degenerative changes in the symphysis bolus. No periosteal bone reaction. Minimal sclerosis an d subchondral cyst formation along the articular surface of the acetabulum, bilaterally. The proximal femurs are intact. Spondylosis at L4-5 and L5-S1 levels. Sacrococcyx is intact. Spina bifida occulta S1.. CT/CT pelvis wo IV con IMPRESSION: No acute fracture or dislocation. Probable acute colit is, left hemicolon. Small fat-containing umbilical hernia. Small to moderate si ze fat-containing left inguinal scrotal hernia. Spondylosis L4-5 to L5-S1. Electronically isabel d by: Nabil Logan MD 03/16/2025 12:33 PM EDT RP Dictated By: Nabil Timmons MD Signed By: <Electronically signed by Nabil Dixon MD in OV> 03/16/25 1233 DD/ 1041 TD/TT: 03/16/25 1214 Personnel Counselor: XR hip RT w PEL1V Reviewed date:03/16/2025 12:53:09 PM Interpretation: Performing Lab: Notes/Report: [facility] [address] [place] [address] XRay Report Signed Patient: Juarez Ludwig MR#: [id number] : 1975 Acct:[id number] Age/Sex: 49 / M ADM Date: 03/16/25 Loc: HO.ED Attending Dr: Ordering Physician: Lida Schroeder Date of Service: 03/16/25 Procedure(s): XR hip RT w PEL1V Accession Number(s): [id number] cc: Kong Brady MD; Lida Schroeder EXAMINATION: XR HIP 1 VIEW RIGHT WITH PELVIS HISTORY: atraumatic R hip pain COMPARISON: Comparison is made with the prior examination dated 11/13/2019. FINDINGS: A single AP view of the pelvis and two views of the right hip are submitted. Osseous mineralization is normal. There is no fracture or dislocation. The joint space is maintained. There are rounded densities in the soft tissues adjacent to the greater trochanter. XR/XR hip RT w PEL1V IMPRESSION: Rounded densities adjacent to the greater trochanter which could represent loose bodies. No osseous abnormality is identified. Electronically signed by: Chidi Pineda MD 03/16/2025 10:45 AM EDT Dictated By: Chidi Pineda MD Signed By: <Electronically signed by Chidi Pineda MD in OV> 03/16/25 1045 DD/ 0933 TD/TT: 03/16/25 1032 Personnel Counselor: [address] [address] XRay Report Signed Patient: Nito Ludwig MR#: [id number] : 1975 Acct:[id number] Age/Sex: 49 / M ADM Date: 03/16/25 Loc: HO.ED Attending Dr: Ordering Physician: Lida Schroeder Date of Service: 03/16/25 Procedure(s): XR hip RT w PEL1V Accession Number(s): [id number] cc: Kong Brady MD; Lida Schroeder EXAMINATION: XR HIP 1 VIEW RIGHT WITH PELVIS HISTORY: atraumatic R hip pain COMPARISON: Comparis on is made with the prior examination dated 11/13/2019. FINDINGS: A single A P view of the pelvis and two views of the right hip are submitted. Osseous mineralization is normal. There is no fracture or dislocation. The joint space is maintained. There are rounded densities in the soft tissues adjacent to the greater trochanter. XR/XR hip RT w PEL1V IMPRESSION: Rounded densities adjacent to the greater trochanter which could represent loose bodi es. No osseous abnormality is identified. Electronically isabel d by: Chidi Pineda MD 03/16/2025 10:45 AM EDT RP Dictated By: Chidi Pineda MD Signed By: <Electronically signed by Chidi Pineda MD in OV> 03/16/25 1045 DD/ 0933 TD/TT: 03/16/25 1032 Personnel Counselor: XR knee RT 4V Reviewed date:03/16/2025 12:51:38 PM Interpretation: Performing Lab: Notes/Report: [address] [address] XRay Report Signed Patient: Juarez Ludwig MR#: [id number] : 1975 Acct:[id number] Age/Sex: 49 / M ADM Date: 03/16/25 Loc: HO.ED Attending Dr: Ordering Physician: Lida Schroeder Date of Service: 03/16/25 Procedure(s): XR knee RT 4V Accession Number(s): [id number] cc: Kong Brady MD; Lida Schroeder EXAMINATION: XR KNEE 4 OR MORE VIEWS RIGHT HISTORY: atraumatic R knee pain COMPARISON: There are no prior studies available for comparison. FINDINGS: Four views of the right knee are submitted. Osseous mineralization is normal. There is an exostosis off the lateral aspect of the distal femoral metaphysis. There is no fracture or dislocation. The joint spaces are preserved. The soft tissues are unremarkable. There is no joint effusion. XR/XR knee RT 4V IMPRESSION: Exostosis off the lateral aspect of the distal femoral metaphysis. Otherwise unremarkable examination of the right knee. Electronically signed by: Chidi Pineda MD 03/16/2025 10:47 AM EDT RP Dictated By: Chidi Pineda MD Signed By: <Electronically signed by Chidi Pineda MD in OV> 03/16/25 1047 DD/ 9 TD/TT: 03/16/25 103 Personnel Counselor: [place] [address] XRay Report Signed Patient: Nito Ludwig ul E MR#: [id number] : 1975 Acct:[id number] Age/Sex: 49 / M ADM Date: 03/16/25 Loc: .ED Attending Dr: Ordering Physician: Lida Schroeder Date of Service: 03/16/25 Procedure(s): XR kne e RT 4V Accession Number(s): [id number] cc: Kong Brady MD; Lida Schroeder EXAMINATION: XR KNEE 4 OR MORE VIEWS RIGHT HISTORY: atraumatic R knee pain COMPARISON: There ar e no prior studies available for comparison. FINDINGS: Four views of the ri t knee are submitted. Osseous mineralization is normal. There is an exostosis off the lateral aspect of the distal femoral metaphysis. There is no fracture or dislocation. The joint spaces are preserved . The soft tissues are unremarkable. There is no joint effusion. XR/XR knee RT 4V IMPRESSION: Exostosis off the lateral aspect of the distal femoral metaphysis. Otherwise unremarkab le examination of the right knee. Electronically isabel d by: Chidi Pineda MD 03/16/2025 10:47 AM EDT RP Dictated By: Chidi Pineda MD Signed By: <Electronically signed by Chidi Pineda MD in OV> 03/16/25 1047 DD/ 9 TD/TT: 03/16/25 1032 Personnel Counselor: Reason For Referral No Information Medications Medication SIG (Take, Route, Frequency, Duration) Notes Start Date End Date Status Albuterol Sulfate HFA 108 (90 Base) MCG/ACT 1 puff as needed Inhalation every 4 hrs for 30 days 10/09/2023 Active Advil 200 MG 3tablet with food or milk as needed Orally Three times a day Active Triamcinolone Acetonide 0.5 % 1 application Externally Two times a Week for 30 days 05/17/2023 Active Cyclobenzaprine HCl 10 MG 1 tablet Orall y twice a day for 10 days 01/05/2025 Active Meloxicam 15 MG 1 tablet Orally Once a day for 30 day(s) 01/05/2025 Active Immunizations Vaccine Route Administration Date Status Comme nts Flu Vaccine IM Intramuscular 06/29/2014 Administered Flu Vaccine IM Intramuscular 06/17/2015 Administered Fluarix Quadrivalent IM Intramuscular 09/19/2016 Administe red Fluarix Quadrivalent IM Intramuscular 11/05/2017 Administe red Fluarix Quadrivalent IM Intramuscular 08/04/2019 Administe red SARS-COV-2 Pfizer Unknown 09/22/2020 Administered SARS-COV-2 Pfizer Unknown 10/13/2020 Administered Fluarix Quadrivalent IM Intramuscular 05/17/2023 Administe red Fluarix Quadrivalent - 150 IM Intramuscular 05/12/2024 Adm inistered Social History Tobacco Use: Social History Observation Description Date Details (start date - stop date) Former Smoker NA - NA Tobacco Use/Smoking Question Answer Notes Patient is a former smoker How long has it been since y ou last smoked? > 10 years Additional Findings: Tobacco Non-User Fo rmer smoker, currently using no form of tobacco Alcohol Screen Question Answer Notes Did you have a drink containing alcohol in the p ast year? 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) Active confirmed Problem 56453464 Intrinsic eczema (L20.84) Active confirmed Problem 573684867 Elevated LDL cholesterol level (E78.00) Active confirmed Problem 54073103 DANIS (obstructive sleep apnea) (G47.33) Active confirmed Problem 660474693 Right facial numbness (R20.0) Active confirmed Problem 280229550 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) Active confirmed Problem 271802315 Diverticular disease (K57.90) Active confirmed Vital Signs Blood pressure diastolic 70 mm Hg 01/05/2025 Height 72 in 01/05/2025 Blood pressure systolic 110 mm Hg 01/05/2025 Weight 295 lbs 01/05/2025 BMI 40 kg/m2 01/05/2025 Encounters Encounter Location Date Provider Diagnosis Kong Brady MD [address] [place] [address] Drive [address] [place] [id number] 05/12/2024 Kong Brady Annual physical exam Z00.00 ; Encounter for immunization Z23 and Elevated LDL cholesterol level E78.00 Kong Brady MD [address] [place] [address] [id number] 05/19/2024 Kong Brady Annual physical exam Z00.00 ; Intrinsic eczema L20.84 ; Elevated LDL cholesterol level E78.00 ; Colon cancer screening Z12.11 and Depression screening Z13.31 Kong Brady MD [address] [place] [id number] 09/04/2024 Kong Brady Infection of left ey e H44.002 Kong Brady MD [address] [place] [address] Drive [address] [place] [id number] 11/28/2024 Kong Brady Ear pain, right H92.01 Kong Brady MD [address] [place] [id number] 01/05/2025 Kong Brady Torticollis, acute M43.6 Kong Brady MD [address] [place] [id number] 01/06/2025 Kong Avelarardier Torticollis, acute M43.6 Assessments Encounter Date Diagnosis (ICD Code) Assessment Notes Treatment Notes Treatment Clinical Notes Section Notes 05/12/2024 Annual physical exam (ICD-10 - Z00.00) 05/12/2024 Encounter for immunization (ICD-10 - Z23) 05/19/2024 Annual physical exam (ICD-10 - Z00.00) labs reviewed and discussed with patient, need colonoscopy report from dr sims/ REPORT REQUESTED FROM DR SIMS OFFICE AND IT WAS RECEIVED 05/19/2024 Intrinsic eczema (ICD-10 - L20.84) 09/04/2024 Infection of left eye (ICD-10 - H44.002) patient verbalized understanding of medication and directions for use 11/28/2024 Ear pain, right (ICD-10 - H92.01) will observe 01/05/2025 Torticollis, acute (ICD-10 - M43.6) patient verbalized understanding of medication and directions for use 01/06/2025 Torticollis, acute (ICD-10 - M43.6) 05/12/2024 Elevated LDL cholesterol level (ICD-10 - E78.00) 05/19/2024 Elevated LDL cholesterol level (ICD-10 - E78.00) stable, will continue to monitor 05/19/2024 Colon cancer screening (ICD-10 - Z12.11) guaiac negative 05/19/2024 Depression screening (ICD-10 - Z13.31) negative screen Plan Of Treatment Pending Test Test Name Order Date Electrocardiogram (EKG) 09/28/2016 Electrocardiogram (EKG) 11/21/2018 XR CHEST 2 VIEW PA & LAT 10/15/2023 XR RIBS LT + PA CHEST 01/03/2024 US CAROTID BILATERAL DOPPLER 05/17/2023 Next Appt Details Provider Name:Knog Carter ier, 05/14/2025 07:00:00 AM, [address] [place] [address], [address], [phone], Provider Name:Kong Carter ier, 05/21/2025 08:30:00 AM, [address] [place] [address], [address], [phone], Insurance Providers Payer Name Payer Address Payer Phone Subscriber Number Group Number Insured Name Patient Relationship to Insured Coverage Start Date Coverage End Date [employer] [address] [place], [place] [id number] Juarez Ludwig Self - patient is the insured Medical (General) History Medical History History ICD Code Depression screening 06/22/14 colonoscopy 2022 repeat
--- OUTSIDE RECORDS SUMMARY | 2025-03-16 13:50 | XMS_ITS | Patient Health Record ---
Author Organization [facility] Address [address] [place] [phone] Care Team Providers Care Personnel Monitor Name Role Phone Kong Brady MD Primary Care Provider Chidi Ruby Unavailable [phone] Allergies No Known Allergies Reason For Referral No Information Medications Medication SIG (Take, Route, Frequency, Duration) Notes Start Date End Date Status Advil 200 MG 3 every AM Orally Active Immunizations Vaccine Route Administration Date Status Comme nts Influenza Unknown 05/04/2022 Administered Social History Tobacco Use: Social History Observation Description Date Details (start date - stop date) Never Smoker NA - NA Tobacco Use/Smoking Question Answer Notes Patient is a nonsmoker Alcohol Screen Question Answer Notes Did you have a drink contain ing alcohol in the past year? Yes How often did you have a dri nk containing alcohol in the past year? 4 or more times a week (4 points) How many drinks did you have on a typical day when you were drinking in the past year? 1 or 2 drinks (0 point) How often did you have 6 or more drinks on one occasion in the past year? Never (0 point) Points 4 Interpretation Positive Section Notes: He does not smoke nor use an y significant amounts of alcohol. Problems Problem Type SNOMED Code ICD Code Onset Dates Problem Status W/U Status Risk Notes Problem Colon cancer screening (486763287) Colon cancer screening (Z12.11) Active confirmed Problem Diverticular disease of colon (662778193) Diverticulosis of large intestine without perforation or abscess without bleeding (K57.30) Active confirmed Problem Preprocedural examination (199129529498322) Preprocedural examination (Z01.818) Active confirmed Plan Of Treatment Future Test Test Name Order Date COLONOSCOPY 07/11/2022 Insurance Providers Payer Name Payer Address Payer Phone Subscriber Number Group Number Insured Name Patient Relationship to Insured Coverage Start Date Coverage End Date [facility] [address] [facility] [place] [address] [phone] [id number] RAJAN NARANOJ Self - patient is the insured Medical (General) History Medical History History ICD Code Kidney stones Diverticulitis approx 10 years ago--rolando murphy with outpatient antibiotics Arthritis Surgical History Surgery Date(Month/Year) Torn right knee meniscus
== END 2025-03-16 13:16 | disposition home or self-care (01) ==
PROVIDERS: Emergency Provider Emergency Medicine; PCP Internal Medicine
DX: M70.71 Other bursitis of hip, right hip (principal); K40.90 Unilateral inguinal hernia, without obstruction or gangrene, not specified as recurrent; K42.9 Umbilical hernia without obstruction or gangrene; M25.551 Pain in right hip; M25.561 Pain in right knee
CPT/HCPCS: 72192; 73502; 73564; 96372; 99284; J1885

== ENCOUNTER → 2025-03-16 10:14 | Outpatient (BNV) | payer BC, SELFPAY | PROVIDERS: PCP Internal Medicine; Visit Provider Radiology Diagnostic Radiology | DX: K42.9 Umbilical hernia without obstruction or gangrene (principal); M47.816 Spondylosis without myelopathy or radiculopathy, lumbar region; M47.817 Spondylosis without myelopathy or radiculopathy, lumbosacral region; M25.561 Pain in right knee; M25.551 Pain in right hip | CPT/HCPCS: 72192; 73502; 73564 ==

== ENCOUNTER 2025-04-02 16:12 | Emergency (ER) | payer BC, SELFPAY ==
--- NOTE | ~2025-04-02 | XR_ITS ---
CLINICAL HISTORY: pain Pelvis and left hip. Comparison CT 03/16/2025. Findings: No fracture or suspicious bony lesion is identified. Alignment of the hip is normal. The soft tissues are unremarkable. Impression: No acute bony abnormality is identified. This document has been electronically signed by: Jeremi Maurice MD on 04/02/2025 18:15:00
[2025-04-02 16:18] VITALS: BP 148/85; PULSE 88; RESP 16; TEMP 36.7; O2SAT 98; BMI 38.6
--- NOTE | 2025-04-02 16:48 | ED.GENADULT ---
HPI - General Adult General Chief complaint: Extremity Injury, Lower Stated complaint: left hip pain Time Seen by Provider: 04/02/25 16:48 History of Present Illness ED Provider: Emilie ORR narrative: The patient is a 49-year-old male who is generally in good health. He was seen in the emergency room here 2 weeks ago for evaluation of acute right hip pain. He was felt to possibly have bursitis and was placed on a course of prednisone. He had significant improvement on the prednisone. He took 60 mg daily for 3 days, then 40 mg daily for 3 days, then 20 mg daily for 3 days. His right hip pain had essentially entirely resolved when yesterday he developed left hip pain. In both of these cases there were no injuries or other symptoms involved. There has been no trauma. No fever, sweats, chills. No rashes. No nausea or vomiting. The patient says that his left hip today hurts with the level of pain that he rates as a 7/10. He says the pain is very similar to the pain he had on the right side 2 weeks ago only on the previous occasion his pain had gotten even worse before he came to the emergency room. He comes to the emergency room more promptly this time in hopes of avoiding the worse pain. Related Data Home Medications ?Medication ?Instructions ?Recorded ?Confirmed ibuprofen 200 mg tablet (Advil) 600 mg PO DAILY 09/14/22 09/15/22 Previous Rx's ?Medication ?Instructions ?Recorded prednisone 20 mg tablet See Rx Instructions .Route 03/16/25 .COMPLEX 9 days #18 tabs ibuprofen 400 mg tablet 400 mg PO Q6H PRN pain #14 tabs 04/02/25 prednisone 20 mg tablet 20 mg PO DAILY #15 tabs 04/02/25 Allergies Allergy/AdvReac Type Severity Reaction Status Date / Time No Known Allergies Allergy Verified 04/02/25 16:21 Review of Systems Review of Systems: Yes all other systems are reviewed and are negative PMFSH Past Medical History Medical History Diverticulitis Arthritis Kidney stones Surgical History History of arthroscopy of right knee Social History Social History Patient Tobacco Use Status: Former Tobacco user Tobacco use type: Cigarette Cigarettes Per Day: 5 Years Smoked: 5 Smoked in Last 30 Days: No Use of substances other than those prescribed or required for medical reasons: No Advance Directives: No Advance Directives Information Provided: No Do you have a plan to hurt others: No Plan Physical Exam ED Vital Signs: Vital Signs - 24 hr 04/02/25 16:18 04/02/25 19:03 04/02/25 19:34 Temperature 98.0 F 97.9 F 97.7 F Pulse Rate 88 55 65 Respiratory Rate 16 16 18 Blood Pressure 148/85 H 108/73 111/82 Pulse Oximetry 98 97 96 Oxygen Delivery Method Room Air Room Air Room Air 04/02/25 19:36 Temperature 97.7 F Pulse Rate 65 Respiratory Rate 18 Blood Pressure 111/82 Pulse Oximetry 96 Oxygen Delivery Method Room Air BMI result Body Mass Index 38.6 Const Other: The patient is a 49-year-old man. He is awake and alert. He came in using crutches and seemed to be limping. He did not seem to be toxic or in distress. HENMT Other: Face is symmetrical. Mucous membranes moist. The posterior pharynx is normal. Eyes Other: Pupils are round equal, conjunctivae are clear, extraocular movements intact Neck Neck: Yes normal visual inspection, Yes full ROM and Yes no lymphadenopathy Resp Effort & Inspection: normal respiratory effort Auscultation: clear to auscultation bilaterally Cardio Rate: regular rate Rhythm: regular rhythm Heart sounds: S1 normal heart sound present and S2 normal heart sound present GI Other: The abdomen is soft and nontender Skin General skin exam: no rashes or lesions noted Neuro Other: The patient is awake and alert with a normal mental status. Cranial nerves 2-12 are intact. He moves his extremities normally and appropriately accept with regard to his left leg which is slightly limited by pain. Otherwise he is neurologically intact. Extrem Other: Extremities appear normal. There was no swelling or edema. I can put the joints of the right leg through full ranges of motion without discomfort. On the left leg I can flex the knee and the hip without really causing any discomfort. However when I internally rotate the hip he seems to have pain. He also has some pain with palpation over the left greater trochanter. Medications Administered Discontinued Medications Generic Name Dose Route Start Last Admin Trade Name Freq PRN Reason Stop Dose Admin Ketorolac Tromethamine 30 mg 04/02/25 17:13 04/02/25 17:51 Ketorolac Tromethamine 30 Mg/Ml Vial IM 04/02/25 17:14 30 mg ONCE ONE Administration Prednisone 60 mg 04/02/25 19:19 04/02/25 19:31 Prednisone 20 Mg Tablet PO 04/02/25 19:20 60 mg ONCE ONE Administration Medical Decision Making Medical Decision Making [facility] Narrative: The patient is a 49-year-old male who presents with the pain starting yesterday in the region of his left hip. Strangely this is very similar to pain he experienced in his right hip 2 weeks ago. Both of these episodes are not related to any injuries. He does not have any other symptoms or illness. There has been no recent travel. No rash. No fever, sweats, chills. He has a negative plain x-ray of the hip today. Labs were done that show a white count of 8.9, hemoglobin 13.9, platelet count 208, unremarkable differential. No left shift. Sed rate 18. CRP 0.6. A Lyme study was sent. My suspicion for Lyme at this point is very low and I will not start empiric antibiotics. This seems to be a very similar syndrome 2 the patient had 2 weeks ago. This is somewhat unusual but I think since he responded to the similar syndrome with prednisone before I will try another course of prednisone. He should follow up with his PCP. Possibly he should also follow up with [facility] since there is a long delay for him to get into see his orthopedic office. Lab Data 04/02/25 17:45 04/02/25 17:45 Labs: Lab Results 04/02/25 Range/Units 17:45 WBC 8.9 (4.8-10.8) X10*3/uL RBC 4.65 (4.60-5.80) X10*6/uL Hgb 13.9 L (14.0-18.0) g/dl Hct 40.1 L (42.0-52.0) % MCV 86.2 (80.0-98.0) fL MCH 29.9 (27.0-33.0) pg MCHC 34.7 (31.0-36.0) g/dl RDW 12.8 (11.0-16.0) % Plt Count 208 (160-400) X10*3/uL MPV 11.3 (9.4-12.4) fL Immature Gran % (Auto) 0.3 (0.0-0.4) % Neut % (Auto) 70.5 (45-73) % Lymph % (Auto) 18.6 L (20-40) % Forrest % (Auto) 8.7 (2-11) % Eos % (Auto) 1.5 (0-4) % Baso % (Auto) 0.4 (0-2) % Lymph # (Auto) 1.7 (1.2-4.9) X10*3/uL Forrest # (Auto) 0.8 (0.1-1.2) X10*3/uL Eos # (Auto) 0.1 (0.0-0.4) X10*3/uL Baso # (Auto) 0.0 (0.0-0.2) X10*3/uL Abs Immat Gran (auto) 0.03 (0.00-0.03) X10*3/uL Absolute Neuts (auto) 6.3 (2.0-8.3) x10*3/uL Absolute Nucleated RBC 0.000 (0.0-0.012) X10*3/uL Nucleated RBC % (auto) 0.0 (0.0-0.2) /100WBC ESR 18 H (0-15) MM/HR Sodium 144 (135-145) mmol/L Potassium 5.1 (3.3-5.1) mmol/L Chloride 106 (96-108) mmol/L Carbon Dioxide 27 (22-29) mmol/L Anion Gap 16 (12-20) BUN 14 (9-16) mg/dL Creatinine 1.00 (0.5-1.4) mg/dL Estim Creat Clear Calc 122.7 Estimated GFR > 60 Random Glucose 98 (60-115) mg/dL Calcium 9.1 (8.4-10.2) mg/dL Total Bilirubin 0.4 (0.0-1.0) mg/dL Direct Bilirubin 0.2 (0.0-0.5) mg/dL AST 25 (5-37) U/L ALT 24 (0-40) U/L Alkaline Phosphatase 60 (39-117) U/L C-Reactive Protein 0.60 H (< or = 0.50) mg/dL Total Protein 7.2 (6.5-8.0) g/dL Albumin 4.3 (3.5-5.0) g/dL Discharge Plan Discharge Clinical Impression: Acute pain of left hip Patient Disposition: Home, Self-Care Instructions: Hip Bursitis (ED) Additional Instructions: I think you may have bursitis of your left hip. Please take the prednisone as previously. You may also use ibuprofen and acetaminophen as needed for pain. Use crutches as needed until you are feeling better. Please contact your regular doctor tomorrow to discuss this further. A Lyme test has been sent that will likely result on Sunday. I think this will probably be negative but it should be checked. We should be calling you if it is positive. An alternative place to follow up might be [facility]. They have offices in many locations in the [facility]. Return to the emergency room if significantly worse. Prescriptions: New prednisone 20 mg tablet 20 mg PO DAILY Qty: 15 0RF Rx Instructions: Take 3 tablets by mouth daily for 2 days then 2 tablets daily by mouth for 3 days, then 1 tablet by mouth daily for 3 days. ibuprofen 400 mg tablet 400 mg PO Q6H PRN (Reason: pain) Qty: 14 0RF No Action ibuprofen [Advil] 200 mg Tablet 600 mg PO DAILY prednisone 20 mg tablet See Rx Instructions .ROUTE .COMPLEX 9 Days Qty: 18 0RF Rx Instructions: 20 mg orally, Take 3 tablets for 3 days THEN; Take 2 tablets for 3 days THEN; Take 1 tablet for 3 days Referrals: [facility] [Provider Group, Sports Medicine] Kong Brady MD [Primary Care Provider, Medical] Interventions: ED Discharge Assessment Last Done: 04/02/25 19:36 Discharge Date/Time: 04/02/25 19:38 Print Language: Irish
--- OUTSIDE RECORDS SUMMARY | 2025-04-02 16:48 | XMS_ITS | Patient Health Record ---
Author Organization Kong Brady MD Address [address] [place], [place] [id number] Care Team Providers Care Assistant Program Director Name Role Phone Kong Brady Primary Care Provider [phone] Allergies No Known Allergies Results Component Value Reference Range Notes Sugar Nuno Reviewed date:05/12/2024 04:01:54 PM Interpretation: Performing Lab:[facility], [address] [place] [phone] Notes/Report: Sugar Nuno See Note Specimen held untested for 24 hours; Call to request Chemistry testing. UA CC w/rflx Micro + Cult Reviewed date:05/13/2024 08:49:13 AM Interpretation: Performing Lab:[facility], [address] [place] [phone] Notes/Report: Urine, Clean Catch Color Urine Yellow Appearance Urine Clear PH 5.5 5.0-9.0 Glucose Urine UA Negative Negative mg/dL Urine Blood Negative Negative Specific [place] - Urine 1.010 1.005-1.025 Urine Protein Negative Neg-Trace mg/dL Urine Ketones Negative Negative mg/dL Nitrite Urine Negative Negative Leukocyte Esterase Urine Negative Negative Complete Blood Count Auto Di ff Reviewed date:05/13/2024 08:44:41 AM Interpretation: Performing Lab:[facility], [address] [place] [phone] Notes/Report: White Blood Count 6.0 4.8-10.8 X10*3/uL [...] NRBC Abs Auto 0.000 0.0-0.012 X10*3/uL Comprehensive [place]. Panel Fa st Reviewed date:05/13/2024 08:46:09 AM Interpretation: Performing Lab:[facility], [address] [place] [phone] Notes/Report: Sodium 141 135-145 mmol/L Potassium 4.3 3.3-5.1 mmol/L Chloride 104 96-108 mmol/L Carbon Dioxide 27 22-29 mmol/L Anion Gap 14 12-20 Blood Urea Nitrogen 13 9-16 mg/dL Creatinine 1.00 0.5-1.4 mg/dL Estimated Glomerular Filt Rate > 60 NOTE: For -[place] individuals, multiply the result by 1.210. Chronic [...] Panel Reviewed date:05/12/2024 04:03:05 PM Interpretation: Performing Lab:[facility], [address] [place] [phone] Notes/Report: Triglycerides 56 <150 mg/dL Desirable Triglyceride: [...] Nuno Reviewed date:05/19/2024 04:54:45 PM Interpretation: Performing Lab:[facility], [address] [place] [phone] Notes/Report: Sugar Nuno See Note Specimen held untested for 24 hours; Call to request Chemistry testing. Hold Green Gel Reviewed date:05/19/2024 04:54:57 PM Interpretation: Performing Lab:[facility], [address] [place] [phone] Notes/Report: Sugar Green Gel See Note Specimen held untested for 24 hours; Call to request Chemistry testing. Occult Blood, Stool, Guaiac Reviewed date:05/19/2024 01:41:08 PM Interpretation:Negative Performing Lab: Notes/Report: Negative Occult Blood, Stool, Guaiac Neg PSA,Total (Free>4and<10) Reviewed date:05/20/2024 07:26:51 AM Interpretation: Performing Lab:[facility], [address] [place] [phone] Notes/Report: PSA,Total (Free>4and<10) 0.65 0.00-4.00 ng/mL A [...] date:03/16/2025 12:52:31 PM Interpretation: Performing Lab: Notes/Report: [address] [address] [address] Scan Report Signed Patient: Juarez Ludwig MR#: [id number] : 1975 Acct:[id number] Age/Sex: 49 / M ADM Date: 03/16/25 Loc: HO.ED Attending Dr: Ordering Physician: Zara Hou Date of Service: 03/16/25 Procedure(s): CT pelvis wo IV con Accession Number(s): [id number] cc: Kong Brady MD; Zara Hou Report Number: [id number]: Total DLP = 620.00 mGy-cm EXAMINATION: CT [...] MD Signed By: <Electronically signed by Nabil Dioxn MD in OV> 03/16/25 1233 DD/ 1041 TD/TT: 03/16/25 1214 Industrial Photographer: [address] [address] [address] Scan Report Signed Patient: Nito Ludwig MR#: [id number] : 1975 Acct:[id number] Age/Sex: 49 / M ADM Date: 03/16/25 Loc: .ED Attending Dr: Ordering Physician: Zara Hou Date of Service: 03/16/25 Procedure(s): CT pel vis wo IV con Accession Number(s): [id number] cc: Kong Brady MD; Zara Hou Report Number: [id number]: Total DLP = 620.00 mGy-cm EXAMINATION: CT [...] 03/16/25 1233 DD/ 1041 TD/TT: 03/16/25 1214 Industrial Photographer: XR hip RT w PEL1V Reviewed date:03/16/2025 12:53:09 PM Interpretation: Performing Lab: Notes/Report: [facility] [address] [place] [address] XRay Report Signed Patient: Juarez Ludwig MR#: [id number] : 1975 Acct:[id number] Age/Sex: 49 / M ADM Date: 03/16/25 Loc: HO.ED Attending Dr: Ordering Physician: Lida Schroeder Date of Service: 03/16/25 Procedure(s): XR hip RT w PEL1V Accession Number(s): [id number] cc: Kong Brady MD; Lida Schroeder EXAMINATION: [...] 03/16/25 1045 DD/ 0933 TD/TT: 03/16/25 1032 Industrial Photographer: [address] [address] XRay Report Signed Patient: Nito Ludwig MR#: [id number] : 1975 Acct:[id number] Age/Sex: 49 / M ADM Date: 03/16/25 Loc: HO.ED Attending Dr: Ordering Physician: Lida Schroeder Date of Service: 03/16/25 Procedure(s): XR hip RT w PEL1V Accession Number(s): [id number] cc: Kong Brady MD; Lida Schroeder EXAMINATION: [...] 03/16/25 1045 DD/ 0933 TD/TT: 03/16/25 1032 Industrial Photographer: XR knee RT 4V Reviewed date:03/16/2025 12:51:38 PM Interpretation: Performing Lab: Notes/Report: [address] [address] XRay Report Signed Patient: Juarez Ludwig MR#: [id number] : 1975 Acct:[id number] Age/Sex: 49 / M ADM Date: 03/16/25 Loc: HO.ED Attending Dr: Ordering Physician: Lida Schroeder Date of Service: 03/16/25 Procedure(s): XR knee RT 4V Accession Number(s): [id number] cc: Kong Brady MD; Lida Schroeder EXAMINATION: [...] Pineda MD in OV> 03/16/25 1047 DD/ TD/TT: 03/16/25 1032 Industrial Photographer: [place] [address] XRay Report Signed Patient: Nito Ludwig ul E MR#: [id number] : 1975 Acct:[id number] Age/Sex: 49 / M ADM Date: 03/16/25 Loc: HO.ED Attending Dr: Ordering Physician: Lida Schroeder Date of Service: 03/16/25 Procedure(s): XR kne e RT 4V Accession Number(s): [id number] cc: Kong Brady MD; Lida Schroeder EXAMINATION: [...] Pineda MD in OV> 03/16/25 1047 DD/ 0930 TD/TT: 03/16/25 1032 Industrial Photographer: Reason For Referral Reason ? 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) Active confirmed Problem 870135972 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) Active confirmed Problem Loose body in right hip joint (2683330001545 02) Loose body in right hip (M24.051) Active confirmed Problem 07859329 Intrinsic eczema (L20.84) Active confirmed Problem 936320356 Elevated LDL cholesterol level (E78.00) Active confirmed Problem 52181300 DANIS (obstructive sleep apnea) (G47.33) Active confirmed Problem 020480134 Right facial numbness (R20.0) Active confirmed Problem 856307993 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) Active confirmed Problem 182555792 Diverticular disease (K57.90) Active confirmed Vital Signs Blood pressure diastolic 66 mm Hg 03/20/2025 Height 72 in 03/20/2025 Blood pressure systolic 104 mm Hg 03/20/2025 Weight 293 lbs 03/20/2025 BMI 39.73 kg/m2 03/20/2025 Encounters Encounter Location Date Provider Diagnosis Kong Brady MD [address] [place] [id number] 05/12/2024 Kong Brady Annual physical exam Z00.00 ; Encounter for immunization Z23 and Elevated LDL cholesterol level E78.00 Kong Brady MD [address] [place] [id number] 05/19/2024 Kong Brady Annual physical exam Z00.00 ; Intrinsic eczema L20.84 ; Elevated LDL cholesterol level E78.00 ; Colon cancer screening Z12.11 and Depression screening Z13.31 Kong Brady MD [address] [place] [id number] 09/04/2024 Kong Brady Infection of left ey e H44.002 Kong Brady MD [address] [place] [id number] 11/28/2024 Kong Brady Ear pain, right H92.01 Kong Brady MD [address] [place] [id number] 01/05/2025 Kong Brady Torticollis, acute M43.6 Kong Brady MD [address] [place] [id number] 03/20/2025 Kong Brady Abnormal abdominal C T scan R93.5 Kong Brady MD [address] [place] [id number] 01/06/2025 Kong Bombardier Torticollis, acute M43.6 Kong Brady MD [address] [place], [place] [id number] 03/16/2025 Kong Brady Assessments Encounter Date Diagnosis (ICD Code) Assessment [...] understanding of medication and directions for use 03/20/[address] scan (ICD-10 - R93.5) question a loose body in the hip joint. will do referral to [facility]/ has no signs of colitis on history no treatment indicated 01/06/2025 Torticollis, acute (ICD-10 - M43.6) 05/12/2024 [...] BILATERAL DOPPLER 05/17/2023 Next Appt Details Provider Name:Kong Carter ier, 05/14/2025 07:00:00 AM, [address], [address], [place], [place], [phone], Provider Name:Kong Carter ier, 05/21/2025 08:30:00 AM, [address], [address], [place], [phone], Insurance Providers Payer Name Payer Address Payer Phone Subscriber Number Group Number Insured Name Patient Relationship to Insured Coverage Start Date Coverage End Date [employer] [address] [place], [place] [id number] [phone] [id number] Juarez Ludwig Self - patient is the insured Medical (General) History Medical History History ICD Code Depression screening 06/22/14 colonoscopy 2022 repeat
--- OUTSIDE RECORDS SUMMARY | 2025-04-02 16:48 | XMS_ITS | Patient Health Record ---
Author Organization [facility] Address [address] [place] [id number] Care Team Providers Care Internal Medicine Physician Assistant Name Role Phone Kong Brady MD Primary Care Provider Chidi Ruby Unavailable [phone] Allergies No Known Allergies Reason For Referral [...] Status Risk Notes Problem Colon cancer screening (442550045) Colon cancer screening (Z12.11) Active confirmed Problem Diverticulosis o f large intestine without perforation or abscess without bleeding (K57.30) Active confirmed Problem Preprocedural examination (134368850959708) Preprocedural examination (Z01.818) Active confirmed Plan Of Treatment Future Test Test Name Order Date COLONOSCOPY 07/11/2022 Insurance Providers Payer Name Payer Address Payer Phone Subscriber Number Group Number Insured Name Patient Relationship to Insured Coverage Start Date Coverage End Date [facility] [address] [facility] [phone] [id number] RAJAN NARANJO Self - patient is the insured Medical (General) History Medical History History ICD Code Kidney stones Diverticulitis approx 10 years ago--rolando murphy with outpatient antibiotics Arthritis Surgical History Surgery Date(Month/Year) Torn right knee meniscus
[2025-04-02 17:52] LABS: MANUAL DIFF FLAG NO
[2025-04-02 18:12] LABS: Alanine Aminotransferase 24 U/L (0-40); Albumin Level 4.3 g/dL (3.5-5.0); Alkaline Phosphatase 60 U/L (39-117); Anion Gap 16 (12-20); Aspartate Amino Transferase 25 U/L (5-37); Blood Urea Nitrogen 14 mg/dL (9-16); Calcium 9.1 mg/dL (8.4-10.2); Carbon Dioxide 27 mmol/L (22-29); Chloride 106 mmol/L (96-108); Creatinine Clr Calc Pharmacy 122.7; Estimated Glomerular Filt Rate > 60; Potassium 5.1 mmol/L (3.3-5.1); Sodium 144 mmol/L (135-145); Total Protein 7.2 g/dL (6.5-8.0)
[2025-04-02 18:31] LABS: Hematocrit 40.1 % (42.0-52.0); Hemoglobin 13.9 g/dl (14.0-18.0); Imm Gran Abs Auto 0.03 X10*3/uL (0.00-0.03); Imm Gran Pct Auto 0.3 % (0.0-0.4); Lymphocytes Absolute Auto 1.7 X10*3/uL (1.2-4.9); Mean Corpuscular HGB Conc 34.7 g/dl (31.0-36.0); Mean Corpuscular Hemoglobin 29.9 pg (27.0-33.0); Mean Corpuscular Volume 86.2 fL (80.0-98.0); NRBC Abs Auto 0.000 X10*3/uL (0.0-0.012); NRBC Pct Auto 0.0 /100WBC (0.0-0.2); Platelet Count 208 X10*3/uL (160-400); Red Blood Count 4.65 X10*6/uL (4.60-5.80); White Blood Count 8.9 X10*3/uL (4.8-10.8)
[2025-04-02 19:03] VITALS: BP 108/73; PULSE 55; RESP 16; TEMP 36.6; O2SAT 97
--- NOTE | 2025-04-02 19:13 | PC.NURSE ---
Called Lab, spoke to Stacey to confirm lab panel is a send out, Stacey confirmed, stated results might not be fully back until sunday d/t it being the weekend Provider Dr. Wilson made aware.
[2025-04-02 19:34] VITALS: BP 111/82; PULSE 65; RESP 18; TEMP 36.5; O2SAT 96
[2025-04-02 19:36] VITALS: BP 111/82; PULSE 65; RESP 18; TEMP 36.5; O2SAT 96
[2025-04-03 15:39] LABS: Lyme Blot 1.44 index
[2025-04-06 10:11] LABS: Lyme Abs Screen POSITIVE
[2025-04-13 19:43] LABS: 39KD (IgG) Band NON-REACTIVE; 41KD (IgG) Band NON-REACTIVE; Lyme IgG Blot Interp NEGATIVE (NEGATIVE); Lyme IgM Blot Interp NEGATIVE (NEGATIVE)
== END 2025-04-02 19:38 | disposition home or self-care (01) ==
PROVIDERS: Emergency Provider Emergency Medicine; PCP Internal Medicine
DX: M25.552 Pain in left hip (principal); A69.20 Lyme disease, unspecified; Z79.899 Other long term (current) drug therapy; Z87.891 Personal history of nicotine dependence
CPT/HCPCS: 36415; 73502; 80048; 80076; 85025; 85652; 86140; 86617; 86618; 96372; 99284; J1885

== ENCOUNTER → 2025-04-02 16:40 | Outpatient (BNV) | payer BC, SELFPAY | PROVIDERS: Emergency Provider Emergency Medicine; PCP Internal Medicine; Visit Provider Radiology Diagnostic Radiology | DX: M25.552 Pain in left hip (principal) | CPT/HCPCS: 73502 ==

== ENCOUNTER 2025-05-14 12:42 | Outpatient (REF) | payer BC, SELFPAY ==
--- OUTSIDE RECORDS SUMMARY | 2025-01-06 04:48 | XMS_ITS ---
Author Organization Kong Brady MD Address [address] [place] [phone] Care Team Providers Care Pedigree Tracer Name Role Phone Kong Brady Primary Care Provider REASON FOR VISIT Cyclobenz Medications Medication SIG (Take, Route, Frequency, Duration) Notes Start Date End Date Status Cyclobenzaprine HCl 10 MG 1 tablet Orall y twice a day for 10 days 01/05/2025 Active Encounters Encounter Location Date Provider Diagnosis Kong Brady MD [address] [place] [phone] 01/06/2025 Kong Brady Torticollis, acute M43.6 Assessments Encounter Date Diagnosis (ICD Code) Assessment Notes Treatment Notes Treatment Clinical Notes Section Notes 01/06/2025 Torticollis, acute (ICD-10 - M43.6) Plan Of Treatment Medication Medication Name Sig Start Date Stop Date Notes Cyclobenzaprine HCl 10 MG 1 tablet Orall y twice a day for 10 days 01/05/2025 Next Appt Details Provider Name:Kong del real, 05/21/2025 08:30:00 AM, [address] [facility], [address] [facility], [place], [place], [phone], Progress Notes * Juarez LUDWIG EDOB:[birth year] (49 yo M)Acc No.[id number]:01/06/2025 Patient: Juarez VIDES :1975 A ge:49 Y S ex:Male Address: [address], [place], [address] * Refills Continue Cyclobenzaprine HCl Tablet, 10 MG, Orally, 20 Tablet, 1 tablet, twice a day, 10 days, Refills=1 * true * Date: Generated for Eliezer adan/Chan/Jose Alfredo on: 0 05/14/2025 04:53 PM EDT
--- OUTSIDE RECORDS SUMMARY | 2025-03-16 12:53 | XMS_ITS ---
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 Name Role Phone Kong Brady Primary Care Provider REASON FOR VISIT ER Encounters Encounter Location Date Provider Diagnosis Kong Brady MD [address] [facility] [address] [place] [phone] 03/16/2025 Kong Brady Plan Of Treatment Next Appt Details Provider Name:Kong Carter ier, 05/21/2025 08:30:00 AM, [address] [place] [address], Suite [facility], [place], [place], [phone], Progress Notes * Juarez LUDWIG EDOB:[birth year] (49 yo M)Acc No.[id number]:03/16/2025 Patient: Juarez VIDES :1975 A ge:49 Y S ex:Male Address:[address], [facility] [place], [address] * true * Date: Generated for Printi ng/Faxing/eTransmitting on: 0 05/14/2025 04:53 PM EDT
--- OUTSIDE RECORDS SUMMARY | 2025-03-20 06:00 | XMS_ITS ---
Author Organization Kong Brady MD Address [address] [place], [place] [id number] Care Team Providers Care Subway Guard Name Role Phone Kong Brady Primary Care Provider [phone] Allergies No Known Allergies Reason For Referral Reason ? loose body in righ t hip Diagnosis 1 Loose body in right hip (M24.051) Referral Organization Kong Brady MD Referring Provider First Name Kong Referring Provider Last Name Jose Antonio Referring Provider Speciality Internal M edicine Referred Provider RAY PELAEZ Referred Provider Specialty Orthopedic S urgery General Notes Nicole Muñoz 0 04/06/2025 10:18:21 AM >info faxed on 03-20-2025, Nicole Muñoz 04/07/2025 08:47:57 AM >patient is aware of appt Referral Priority Routine Referral Appointment Date 06/04/2025 REASON FOR VISIT f/u ERV Hip and knee pain feeling much better Medications Medication SIG (Take, Route, Frequency, Duration) Notes Start Date End Date Status Advil 200 MG 3tablet with food or milk as needed Orally Three times a day Not-Taking predniSONE 20 MG 1 tablet with food o r milk Orally Once a day Active Cyclobenzaprine HCl 10 MG 1 tablet Orall y twice a day for 10 days 01/05/2025 Not-Taking Meloxicam 15 MG 1 tablet Orally Once a day for 30 day(s) 01/05/2025 Not-Taking Albuterol Sulfate HFA 108 (90 Base) MCG/ACT 1 puff as needed Inhalation every 4 hrs for 30 days 10/09/2023 Active Vital Signs Blood pressure systolic 104 mm Hg 03/20/20 25 Blood pressure diastolic 66 mm Hg 025 Height 72 in 03/20/2025 Weight 293 lbs 03/20/2025 BMI 39.73 kg/m2 03/20/2025 Encounters Encounter Location Date Provider Diagnosis Kong Brady MD [address] [place] [address] [address] [place], [place] [phone] 03/20/2025 Kong Brady Abnormal abdominal CT scan R93.5 Assessments Encounter Date Diagnosis (ICD Code) Assessment Notes Treatment Notes Treatment Clinical Notes Section Notes 03/20/[address] scan (ICD-10 - R93.5) question a loose body in the hip joint. will do referral to [facility]/ has no signs of colitis on history no treatment indicated Plan Of Treatment Treatment Notes Assessment Notes Abnormal abdominal CT scan question a lo ose body in the hip joint. will do referral to [facility]/ has no signs of colitis on history no treatment indicated Referrals Referral Date Details 03/20/2025 03/20/2025, ? loose body in right hip, [facility] Next Appt Details Provider Name:Kong Carter ier, 05/21/2025 08:30:00 AM, [address] [place] [address], [address], [place], [place], [phone], Progress Notes * Juarez LUDWIG EDOB:[birth year] (49 yo M)Acc No.[id number]:03/20/2025 Progress Notes Patient: Juarez VIDES Provider: Alvin Brady MD :1975 A ge:49 Y S ex:Male Date:03/20/2025 Address:[address], [facility] [id number] Subjective: * Chief Complaints: * f /u ERV Hip and knee pain feeling much better * HPI: S ymptom(s): patient is a 58 yo male here for follow up from recent ER visit, also complaining of knee pain/? had severe [ain 5 days ago and went to er . put him on steroids. is doing better. hurts just in the socket. no radiation. * ROS: G eneral/Constitutional: Denies C hills. D enies F atigue. D enies F ever. D enies H eadache. E NT: Denies S ore throat. R espiratory: Denies C ough. D enies S hortness of breath at rest. D enies S hortness of breath with exertion. G astrointestinal: Denies D iarrhea. D enies N ausea. * Medical History: * Surgical History: * Hospitalization/Major Diagno stic Procedure: * Medications: T akingpredniSONE 20 MG Tablet 1 tablet with food or milk Orally Once a day Albuterol Sulfate HFA 108 (90 Base) MCG/ACT Aerosol Solution 1 puff as needed Inhalation every 4 hrs Taking predniSONE 20 MG Tablet 1 tablet with food or milk Orally Once a day Taking Albuterol Sulfate HFA 108 (90 Base) MCG/ACT Aerosol Solution 1 puff as needed Inhalation every 4 hrs Not-Taking/PRNAdvil 200 MG Tablet 3tablet with food or milk as needed Orally Three times a day Meloxicam 15 MG Tablet 1 tablet Orally Once a day Cyclobenzaprine HCl 10 MG Tablet 1 tablet Orally twice a day Medication List reviewed and reconciled with the patientNot-Taking/PRN Advil 200 MG Tablet 3tablet with food or milk as needed Orally Three times a day Not-Taking/PRN Meloxicam 15 MG Tablet 1 tablet Orally Once a day Not-Taking/PRN Cyclobenzaprine HCl 10 MG Tablet 1 tablet Orally twice a day Medication List reviewed and reconciled with the patient * Allergies: N .K.D.A.yes[Allergies Verified] Objective: * Vitals: H t: 72, Wt: 293, BMI:39.73, BP:104/66, Wt-k.9. * Examination: G eneral Examination: GENERAL APPEARANCE: a lert, well hydrated, in no distress.? HEAD: n ormocephalic. SKIN: g ood turgor. EXTREMITIES: n ormal rom of hip with no pain. ? Assessment: * Assessment: 1. A bnormal abdominal CT scan - R93.5 (Primary) Plan: * Treatment: 2. O thers Referral To:[facility] Orthopedic Surgery Reason:? loose body in right hip * Procedure Codes: * * Sign off status: Completed true * Provider: Alvin Bardy MD Date: 0 03/20/2025 Generated for Eliezer adan/Chan/Aleksanderitting on: 0 05/14/2025 04:53 PM EDT History and Physical Notes * HPI (History of Present Illness) Category Sub-Category Detail Notes Category Not es Symptom(s) patient is a 58 yo male here for follow up from recent ER visit, also complaining of knee pain/ had severe [ain 5 days ago and went to er . put him on steroids. is doing better. hurts just in the socket. no radiation Examination Category Sub-Category Detail Notes Category Not es General Examination GENERAL APPEARANCE: alert, w ell hydrated, in no distress HEAD: normocephalic SKIN: good turgor EXTREMITIES: normal rom of hip wi th no pain Consultation Request Notes Referral Date Referring Provider Referred Provider Not vern 03/20/2025 Kong Brady, [facility]TH[facility] ? loose body in right hip
--- OUTSIDE RECORDS SUMMARY | 2025-04-02 16:48 | XMS_ITS ---
Author Organization Kong Brady MD Address [address] [place] [phone] Care Team Providers Care Can Dragger Name Role Phone Kong Brady Primary Care Provider [phone] REASON FOR VISIT ER Encounters Encounter Location Date Provider Diagnosis Kong Brady MD [address] [facility] [address] [place] [id number] 04/02/2025 Kong Brady Plan Of Treatment Next Appt Details Provider Name:Kong Carter ier, 05/21/2025 08:30:00 AM, [address] [place] [address], Suite [facility], [place], [place], [phone], Progress Notes * Juarez LUDWIG EDOB:[birth year] (49 yo M)Acc No.[id number]:04/02/2025 Patient: Juarez VIDES :1975 A ge:49 Y S ex:Male Address:[address], [place], [address] * true * Date: Generated for Printi ng/Faxing/eTransmitting on: 0 05/14/2025 04:52 PM EDT
--- OUTSIDE RECORDS SUMMARY | 2025-05-14 03:00 | XMS_ITS ---
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 Role Phone Kong Brady Primary Care Provider Results Component Value Reference Range Notes Complete Blood Count Auto Di ff Reviewed date:05/14/2025 01:04:22 PM Interpretation: Performing Lab:[facility], [address] [place] [phone] Notes/Report: White Blood Count 8.3 4.8-10.8 X10*3/uL Red Blood Count 4.78 4.60-5.80 X10*6/uL Hemoglobin 14.2 14.0-18.0 g/dl Hematocrit 42.4 42.0-52.0 % Mean Corpuscular Volume 88.7 80.0-98.0 fL Mean Corpuscular Hemoglobin 29.7 27.0-33.0 pg Mean Corpuscular HGB Conc 33.5 31.0-36.0 g/dl Red Cell Distribution Width 13.4 11.0-16.0 % Platelet Count 208 160-400 X10*3/uL Mean Platelet Volume 11.5 9.4-12.4 fL Neutrophils Percent Auto 74.7 45-73 % Imm Gran Pct Auto 0.5 0.0-0.4 % Lymphocytes Percent Auto 15.0 20-40 % Monocytes Percent Auto 7.9 2-11 % Eosinophils Percent Auto 1.3 0-4 % Basophils Percent Auto 0.6 0-2 % NRBC Pct Auto 0.0 0.0-0.2 /100WBC Neutrophils Absolute Auto 6.2 2.0-8.3 x10*3/u L Imm Gran Abs Auto 0.04 0.00-0.03 X10*3/uL Lymphocytes Absolute Auto 1.3 1.2-4.9 X10*3/u L Monocytes Absolute Auto 0.7 0.1-1.2 X10*3/uL Eosinophils Absolute Auto 0.1 0.0-0.4 X10*3/u L Basophils Absolute Auto 0.1 0.0-0.2 X10*3/uL NRBC Abs Auto 0.000 0.0-0.012 X10*3/uL Comprehensive [place]. Panel Fa st Reviewed date:05/14/2025 04:38:58 PM Interpretation: Performing Lab:[address] [phone] Notes/Report: Sodium 139 135-145 mmol/L Potassium 4.3 3.3-5.1 mmol/L Chloride 104 96-108 mmol/L Carbon Dioxide 27 22-29 mmol/L Anion Gap 12 12-20 Blood Urea Nitrogen 14 9-16 mg/dL Creatinine 0.93 0.5-1.4 mg/dL Estimated Glomerular Filt Rate > 60 Chronic Kidney Disease: Estimated GFR < 60 mL/min/1.73m2 Severe Kidney Disease: Estimated GFR < 15 mL/min/1.73m2 Glucose Fasting 92 60-99 mg/dL Calcium 10.1 8.4-10.2 mg/dL Bilirubin Total 0.6 0.0-1.0 mg/dL Aspartate Amino Transferase 27 5-37 U/L Alanine Aminotransferase 19 0-40 U/L Total Protein 7.0 6.5-8.0 g/dL Albumin Level 4.3 3.5-5.0 g/dL Alkaline Phosphatase 48 39-117 U/L Lipid Panel Reviewed date:05/14/2025 04:38:04 PM Interpretation: Performing Lab:[facility], [address] [place] [phone] Notes/Report: Triglycerides 67 <150 mg/dL Desirable Triglyceride: less than 150 mg/dL Borderline High Triglyceride 150-199 mg/dL High Triglyceride: 200-499 mg/dL Very High Triglyceride: greater than or equal to 5OO mg/dL Cholesterol 217 <200 mg/dL Desirable Cholesterol: less than 200 mg/dL Borderline High Cholesterol: 200-239 mg/dL High Cholesterol: greater than 239 mg/dL LDL Cholesterol Calculated 145 <100 mg/dL Desirable LDL: less than 100 mg/dL Near Optimal/Above Optimal LDL: 110-129 mg/dL Borderline High LDL: 130-159 mg/dL High LDL: 160-189 mg/dL Very High LDL: greater than or equal to 190 mg/dL HDL Cholesterol 59 >40 mg/dL Desirable HDL: greater than 40 mg/dL Note: This HDL assay may give artificially low results in patients with liver disease. PSA,Total (Free>4and<10) Reviewed date:05/14/2025 04:37:53 PM Interpretation: Performing Lab:[facility], [address] [place] [phone] Notes/Report: PSA,Total (Free>4and<10) 1.21 0.00-4.00 ng/mL A Free PSA was not [...] Grier Alinity i Chemiluminescent Microparticle Immunoassay (CMIA) UA ClnCatch+Micro w/rflx Cul t Reviewed date:05/14/2025 04:38:33 PM Interpretation: Performing Lab:[facility], [address] [place] [phone] Notes/Report: [id number] Urine, Clean Catch Color Urine Yellow Appearance Urine Clear PH 7.0 5.0-9.0 Glucose Urine UA Negative Negative mg/dL Urine Blood Negative Negative Specific [place] - Urine <= 1.005 1.005-1.025 Urine Protein Negative Neg-Trace mg/dL Urine Ketones Negative Negative mg/dL Nitrite Urine Negative Negative Leukocyte Esterase Urine Negative Negative RBC Urine 0-2 0-2 /HPF WBC Urine 0-5 0-5 /HPF Squamous Epithelial Cell Urine 0-2 0-2 /HPF Bacteria Urine None Seen None Seen Hyaline Casts Urine 0-2 0-2 /LPF REASON FOR VISIT FASTING LABS Immunizations Vaccine Route Administration Date Status Comme nts Fluarix Quadrivalent - 150 IM Intramuscular 05/14/2025 Adm inistered Encounters Encounter Location Date Provider Diagnosis Kong Brady MD [address] [place] [address] [place] [phone] 05/14/2025 Kong Brady Blood tests for routine general physical examination Z00.00 ; Elevated LDL cholesterol level E78.00 and Encounter for administration of vaccine Z23 Assessments Encounter Date Diagnosis (ICD Code) Assessment Notes Treatment Notes Treatment Clinical Notes Section Notes 05/14/2025 Blood tests for routine general physical examination (ICD-10 - Z00.00) 05/14/2025 Elevated LDL cholesterol level (ICD-10 - E78.00) 05/14/2025 Encounter for administration of vaccine (ICD-10 - Z23) Plan Of Treatment Next Appt Details Provider Name:Kong Carter ier, 05/21/2025 08:30:00 AM, [address] [place] [address], [address], [place], [place], [phone], Progress Notes * Juarez LUDWIG EDOB:[birth year] (49 yo M)Acc No.[id number]:05/14/2025 Progress Note Patient: Juarez VIDES Provider: Alvin Brady MD :1975 A ge:49 Y S ex:Male Date:05/14/2025 Address:[address] [place] [address] , [id number] Subjective: * Chief Complaints: * 1 . FASTING LABS. * Medical History: Objective: * Vitals: Assessment: * Assessment: 1. B lood tests for routine general physical examination - Z00.00 (Primary) 2 .?Elevated LDL cholesterol level - E78.00 3 . E ncounter for administration of vaccine - Z23 Plan: * Treatment: 2. E levated LDL cholesterol level L AB: Complete Blood Count Auto Diff (Collection Date & Time - 05/14/2025 07:00 AM) L AB: Comprehensive [place]. Panel Fast (Collection Date & Time - 05/14/2025 07:00 AM) L AB: Lipid Panel (Collection Date & Time - 05/14/2025 07:00 AM) L AB: PSA,Total (Free>4and<10) (Collection Date & Time - 05/14/2025 07:00 AM) L AB: UA ClnCatch+Micro w/rflx Cult (Collection Date & Time - 05/14/2025 07:00 AM) * Immunizations: Fluarix Quadrivalent - 150 : 0.5 mL (Dose No:1) (Route: Intramuscular) given by Florina Perry , Office Staff on Left Deltoid * Procedure Codes: 3 6415 VENIPUNCT, ROUTINE*, 30931 FLU VACCINE NO PRESERV 3 & >, 58345 IMMUNIZATION ADMIN * * The named appointment provid er may or may not be the originator of this progress note, and it is not deemed complete until electronically signed by the appointment provider. Sign off status: Pending * Provider: Alvin Brady MD Date: 0 05/14/2025 Generated for Eliezer adan/Chan/Aleksanderitting on: 05/14/2025 04:53 PM EDT
[2025-05-14 12:45] LABS: MANUAL DIFF FLAG NO
[2025-05-14 12:55] LABS: Hematocrit 42.4 % (42.0-52.0); Hemoglobin 14.2 g/dl (14.0-18.0); Imm Gran Abs Auto 0.04 X10*3/uL (0.00-0.03); Imm Gran Pct Auto 0.5 % (0.0-0.4); Lymphocytes Absolute Auto 1.3 X10*3/uL (1.2-4.9); Mean Corpuscular HGB Conc 33.5 g/dl (31.0-36.0); Mean Corpuscular Hemoglobin 29.7 pg (27.0-33.0); Mean Corpuscular Volume 88.7 fL (80.0-98.0); NRBC Abs Auto 0.000 X10*3/uL (0.0-0.012); NRBC Pct Auto 0.0 /100WBC (0.0-0.2); Platelet Count 208 X10*3/uL (160-400); Red Blood Count 4.78 X10*6/uL (4.60-5.80); White Blood Count 8.3 X10*3/uL (4.8-10.8)
[2025-05-14 13:00] LABS: Appearance Urine Clear; Glucose Urine UA Negative (Negative); PH 7.0 (5.0-9.0); Specific Gravity - Urine <= 1.005 (1.005-1.025)
[2025-05-14 13:15] LABS: Alanine Aminotransferase 19 U/L (0-40); Albumin Level 4.3 g/dL (3.5-5.0); Alkaline Phosphatase 48 U/L (39-117); Anion Gap 12 (12-20); Aspartate Amino Transferase 27 U/L (5-37); Blood Urea Nitrogen 14 mg/dL (9-16); Calcium 10.1 mg/dL (8.4-10.2); Carbon Dioxide 27 mmol/L (22-29); Chloride 104 mmol/L (96-108); Cholesterol 217 mg/dL (<200); Estimated Glomerular Filt Rate > 60; HDL Cholesterol 59 mg/dL (>40); Potassium 4.3 mmol/L (3.3-5.1); Sodium 139 mmol/L (135-145); Total Protein 7.0 g/dL (6.5-8.0); Triglycerides 67 mg/dL (<150)
[2025-05-14 13:31] LABS: PSA,Total (Free>4and<10) 1.21 ng/mL (0.00-4.00)
--- OUTSIDE RECORDS SUMMARY | 2025-05-14 16:53 | XMS_ITS | Patient Health Record ---
Author Organization [facility] Address [address] [place] [id number] Care Team Providers Care Flame Hardener Name Role Phone Kong Brady MD Primary Care Provider Chidi Ruby Unavailable [phone] Allergies No Known Allergies Reason For Referral [...] Status Risk Notes Problem Colon cancer screening (673958940) Colon cancer screening (Z12.11) Active confirmed Problem Diverticular disease of colon (804240092) Diverticulosis of large intestine without perforation or abscess without bleeding (K57.30) Active confirmed Problem Preprocedural examination (130199617698545) Preprocedural examination (Z01.818) Active confirmed Plan Of Treatment Future Test Test Name Order Date COLONOSCOPY 07/11/2022 Insurance Providers Payer Name Payer Address Payer Phone Subscriber Number Group Number Insured Name Patient Relationship to Insured Coverage Start Date Coverage End Date [facility] [address] [place] [phone] [id number] RAJAN NARANJO Self - patient is the insured Medical (General) History Medical History History ICD Code Kidney stones Diverticulitis approx 10 years ago--rolando murphy with outpatient antibiotics Arthritis Surgical History Surgery Date(Month/Year) Torn right knee meniscus
--- OUTSIDE RECORDS SUMMARY | 2025-05-14 16:53 | XMS_ITS | Patient Health Record ---
Author Organization Kong Brady MD Address [address] [place], [place] [id number] Care Team Providers Care Aircraft Dispatcher Name Role Phone Kong Brady Primary Care Provider [phone] Allergies No Known Allergies Results Component Value Reference Range Notes Sugar Gold Reviewed date:05/19/2024 04:54:45 PM Interpretation: Performing Lab:[facility], [address] [place] [phone] Notes/Report: Sugar Gold See Note Specimen held untested for 24 hours; Call to request Chemistry testing. Hold Green Gel Reviewed date:05/19/2024 04:54:57 PM Interpretation: Performing Lab:[facility], [address] [place] [phone] Notes/Report: Hold Green Gel See Note Specimen held untested for 24 hours; Call to request Chemistry testing. Occult Blood, Stool, Guaiac Reviewed date:05/19/2024 01:41:08 PM Interpretation:Negative Performing Lab: Notes/Report: Negative Occult Blood, Stool, Guaiac Neg PSA,Total (Free>4and<10) Reviewed date:05/20/2024 07:26:51 AM Interpretation: Performing Lab:[facility], [address] [place] [phone] Notes/Report: PSA,Total (Free>4and<10) 0.65 0.00-4.00 ng/mL A [...] date:03/16/2025 12:52:31 PM Interpretation: Performing Lab: Notes/Report: [address] [address] [address] Scan Report Signed Patient: Juarez Ludwig MR#: [id number] : 1975 Acct:[id number] Age/Sex: 49 / M ADM Date: 03/16/25 Loc: .ED Attending Dr: Ordering Physician: Zara Hou Date of Service: 03/16/25 Procedure(s): CT pelvis wo IV con Accession Number(s): [id number] cc: Kong Brady MD; Zara Hou Report Number: [id number]: Total DLP = 620.00 mGy-cm EXAMINATION: CT [...] 12:33 PM EDT RP Dictated By: Nabil Cowan MD Signed By: <Electronically signed by Nabil Dixon MD in OV> 03/16/25 1233 DD/ 1041 TD/TT: 03/16/25 1214 Java Spring Developer: [place] [address] CT Scan Report Signed Patient: Nito Ludwig MR#: [id number] : 1975 Acct:[id number] Age/Sex: 49 / M ADM Date: 03/16/25 Loc: .ED Attending Dr: Ordering Physician: Zara Hou Date of Service: 03/16/25 Procedure(s): CT pel vis wo IV con Accession Number(s): [id number] cc: Kong Brady MD; Zara Hou Report Number: [id number]: Total DLP = 620.00 mGy-cm EXAMINATION: CT [...] 03/16/2025 12:33 PM EDT Dictated By: Nabil Timmons MD Signed By: <Electronically signed by Nabil Dixon MD in OV> 03/16/25 1233 DD/ 1041 TD/TT: 03/16/25 1214 Java Spring Developer: XR hip RT w PEL1V Reviewed date:03/16/2025 12:53:09 PM Interpretation: Performing Lab: Notes/Report: [address] [address] XRay Report Signed Patient: Juarez Ludwig MR#: [id number] : 1975 Acct:[id number] Age/Sex: 49 / M ADM Date: 03/16/25 Loc: HO.ED Attending Dr: Ordering Physician: Lida Schroeder Date of Service: 03/16/25 Procedure(s): XR hip RT w PEL1V Accession Number(s): [id number] cc: Kong Brady MD; Lida Schroeder EXAMINATION: [...] 03/16/25 1045 DD/ 0933 TD/TT: 03/16/25 1032 Java Spring Developer: [place] [address] XRay Report Signed Patient: Nito Ludwig MR#: [id number] : 1975 Acct:[id number] Age/Sex: 49 / M ADM Date: 03/16/25 Loc: .ED Attending Dr: Ordering Physician: Lida Schroeder Date of Service: 03/16/25 Procedure(s): XR hip RT w PEL1V Accession Number(s): [id number] cc: Kong Brady MD; Lida Schroeder EXAMINATION: [...] 03/16/25 1045 DD/ 0933 TD/TT: 03/16/25 1032 Java Spring Developer: XR knee RT 4V Reviewed date:03/16/2025 12:51:38 PM Interpretation: Performing Lab: Notes/Report: [address] [address] XRay Report Signed Patient: Juarez Ludwig MR#: [id number] : 1975 Acct:[id number] Age/Sex: 49 / M ADM Date: 03/16/25 Loc: HO.ED Attending Dr: Ordering Physician: Lida Schroeder Date of Service: 03/16/25 Procedure(s): XR knee RT 4V Accession Number(s): [id number] cc: Kong Brady MD; Lida Schroeder EXAMINATION: [...] 03/16/25 1047 DD/ 0930 TD/TT: 03/16/25 1032 Java Spring Developer: [address] [address] XRay Report Signed Patient: Nito Ludwig ul E MR#: [id number] : 1975 Acct:[id number] Age/Sex: 49 / M ADM Date: 03/16/25 Loc: HO.ED Attending Dr: Ordering Physician: Lida Schroeder Date of Service: 03/16/25 Procedure(s): XR kne e RT 4V Accession Number(s): [id number] cc: Kong Brady MD; Lida Schroeder EXAMINATION: [...] Chidi Pineda MD 03/16/2025 10:47 AM EDT Dictated By: Chidi Pineda MD Signed By: <Electronically signed by Chidi Pineda MD in OV> 03/16/25 1047 DD/ 0930 TD/TT: 03/16/25 1032 Java Spring Developer: Complete Blood Count Auto Di ff Reviewed date:04/03/2025 08:54:43 AM Interpretation: Performing Lab:[facility], [address] [place] [phone] Notes/Report: White Blood Count 8.9 4.8-10.8 X10*3/uL Red Blood Count 4.65 4.60-5.80 X10*6/uL Hemoglobin 13.9 14.0-18.0 g/dl Hematocrit 40.1 42.0-52.0 % Mean Corpuscular Volume 86.2 80.0-98.0 fL Mean Corpuscular Hemoglobin 29.9 27.0-33.0 pg Mean Corpuscular HGB Conc 34.7 31.0-36.0 g/dl Red Cell Distribution Width 12.8 11.0-16.0 % Platelet Count 208 160-400 X10*3/uL Mean Platelet Volume 11.3 9.4-12.4 fL Neutrophils Percent Auto 70.5 45-73 % Imm Gran Pct Auto 0.3 0.0-0.4 % Lymphocytes Percent Auto 18.6 20-40 % Monocytes Percent Auto 8.7 2-11 % Eosinophils Percent Auto 1.5 0-4 % Basophils Percent Auto 0.4 0-2 % NRBC Pct Auto 0.0 0.0-0.2 /100WBC Neutrophils Absolute Auto 6.3 2.0-8.3 x10*3/u L Imm Gran Abs Auto 0.03 0.00-0.03 X10*3/uL Lymphocytes Absolute Auto 1.7 1.2-4.9 X10*3/u L Monocytes Absolute Auto 0.8 0.1-1.2 X10*3/uL Eosinophils Absolute Auto 0.1 0.0-0.4 X10*3/u L Basophils Absolute Auto 0.0 0.0-0.2 X10*3/uL NRBC Abs Auto 0.000 0.0-0.012 X10*3/uL Erythrocyte Sedimentation Ra te Reviewed date:04/03/2025 08:55:05 AM Interpretation: Performing Lab:[facility], [address] [place] [phone] Notes/Report: Erythrocyte Sedimentation Rate 18 0-15 MM/HR Patients with polycythemia and many hemoglobin abnormalities may have depressed sed rates whereas patients with anemia may have elevated sed rates. Liver Panel Reviewed date:04/03/2025 08:54:51 AM Interpretation: Performing Lab:[address] [phone] Notes/Report: Bilirubin Total 0.4 0.0-1.0 mg/dL Bilirubin Direct 0.2 0.0-0.5 mg/dL Aspartate Amino Transferase 25 5-37 U/L Slight Hemolysis.Interpret result with caution. Alanine Aminotransferase 24 0-40 U/L Total Protein 7.2 6.5-8.0 g/dL Albumin Level 4.3 3.5-5.0 g/dL Alkaline Phosphatase 60 39-117 U/L Basic Metabolic Panel Reviewed date:04/03/2025 12:32:04 PM Interpretation: Performing Lab:[address] [phone] Notes/Report: Sodium 144 135-145 mmol/L Potassium 5.1 3.3-5.1 mmol/L Slight Hemolysis.Interpret result with caution. Chloride 106 96-108 mmol/L Carbon Dioxide 27 22-29 mmol/L Anion Gap 16 12-20 Blood Urea Nitrogen 14 9-16 mg/dL Creatinine 1.00 0.5-1.4 mg/dL Creatinine Clr Calc Pharmacy 122.7 eGFR (calculated from the MDRD study equation) and eCrCl (calculated from the Cockcroft-Gault equation) are based on different parameters and may not yield comparable results. If eCrCl result is absurd, please check patient's height/weight. Estimated Glomerular Filt Rate > 60 Chronic Kidney Disease: Estimated GFR < 60 mL/min/1.73m2 Severe Kidney Disease: Estimated GFR < 15 mL/min/1.73m2 Glucose Random 98 60-115 mg/dL Calcium 9.1 8.4-10.2 mg/dL C Reactive Protein Reviewed date:04/03/2025 12:31:26 PM Interpretation: Performing Lab:[facility], [address] [place] [phone] Notes/Report: C Reactive Protein 0.60 < or = 0.50 mg/dL Lyme IgG/IgM [place]ot Reviewed date:04/14/2025 06:17:02 PM Interpretation: Performing Lab:[facility], [address] [place] [phone] Notes/Report: Lyme IgG Blot Interp NEGATIVE NEGATIVE 18 KD (IgG) Band REACTIVE 23 KD (IgG) Band NON-REACTIVE 28 KD (IgG) Band NON-REACTIVE 30 KD (IgG) Band NON-REACTIVE 39KD (IgG) Band NON-REACTIVE 41KD (IgG) Band NON-REACTIVE 45 KD (IgG) Band NON-REACTIVE 58 KD (IgG) Band NON-REACTIVE 66 KD (IgG) Band NON-REACTIVE 93 KD (IgG) Band NON-REACTIVE Lyme IgM Blot Interp NEGATIVE NEGATIVE 23 KD (IgM) Band NON-REACTIVE 39 KD (IgM) Band NON-REACTIVE 41 KD (IgM) Band NON-REACTIVE Lyme immunoblot testing should only be performed on samples from patients who have had a Positive or Equivocal result in a screening assay. As per CDC criteria, a Lyme disease IgG Immunoblot must show reactivity to at least 5 of 10 specific borrelial proteins to be considered positive; similarly, a positive Lyme disease IgM immunoblot requires reactivity to 2 of 3 specific borrelial proteins. Although considered negative, IgG reactivity to fewer specific borrelial proteins or IgM reactivity to only 1 protein may indicate recent B. burgdorferi infection and warrant testing of a later sample. A positive IgM but negative IgG result obtained more than a month after onset of symptoms likely represents a false- positive IgM result rather than acute Lyme disease. In rare instances, Lyme disease immunoblot reactivity may represent antibodies induced by exposure to other spirochetes. THIS TEST WAS PERFORMED AT: [facility] [address] [place] [phone] NANCY LOU MD Lyme IgG/IgM w/reflex to WB Reviewed date:04/14/2025 06:16:16 PM Interpretation: Performing Lab:[address] [phone] Notes/Report: Lyme Abs Screen POSITIVE Lyme Blot 1.44 Index Interpretation ----- < 0.90 Negative 0.90-1.09 Equivocal > 1.09 Positive As recommended by the Food and Drug Administration (FDA), all samples with positive or equivocal results in a Borrelia burgdorferi antibody screen will be tested using a blot method. Positive or equivocal screening test results should not be interpreted as truly positive until verified as such using a supplemental assay (e.g., B. burgdorferi blot). The screening test and/or blot for B. burgdorferi antibodies may be falsely negative in early stages of Lyme disease, including the period when erythema migrans is apparent. THIS TEST WAS PERFORMED AT: [facility] [address] [place] [phone] NANCY LOU MD XR hip LT w PEL1V Reviewed date:04/03/2025 12:31:18 PM Interpretation: Performing Lab: Notes/Report: [address] [address] XRay Report Signed Patient: Juarez Ludwig MR#: [id number] : 1975 Acct:[id number] Age/Sex: 49 / M ADM Date: 04/02/25 Loc: HO.ED Attending Dr: Ordering Physician: Zara Hou Date of Service: 04/02/25 Procedure(s): XR hip LT w PEL1V Accession Number(s): [id number] cc: Kong Brady MD; Zara Hou CLINICAL HISTORY: pain Pelvis and left hip. Comparison CT 03/16/2025. Findings: No fracture or suspicious bony lesion is identified. Alignment of the hip is normal. The soft tissues are unremarkable. Impression: No acute bony abnormality is identified. This document has been electronically signed by: Jeremi Maurice MD on 04/02/2025 18:15:00 Dictated By: Raphael Murillo MD Signed By: <Electronically signed by Raphael Murillo MD in OV> 04/02/251814 DD/ 14 TD/TT: 04/02/251814 Java Spring Developer: [place] [address] XRay Report Signed Patient: Nito Ludwig MR#: [id number] : 1975 Acct:[id number] Age/Sex: 49 / M ADM Date: 04/02/25 Loc: HO.ED Attending Dr: Ordering Physician: Zara Hou Date of Service: 04/02/25 Procedure(s): XR hip LT w PEL1V Accession Number(s): [id number] cc: Kong Brady MD; Zara Hou CLINICAL HISTORY: pain Pelvis and left hip. Comparison CT 03/16/2025. Findings: No fracture or suspicious bony lesion is identified. Alignment of the hip is normal. The soft tissues are unremarkable. Impression: No acute bony abnormality is identified. This document has be en electronically signed by: Jeremi Maurice MD on 04/02/2025 18:15:00 Dictated By: Raphael Murillo MD Signed By: <Electronically signed by Raphael Murillo MD in OV> 04/02/251814 DD/ 14 TD/TT: 04/02/251814 Java Spring Developer: Complete Blood Count Auto Di ff Reviewed date:05/14/2025 01:04:22 PM Interpretation: Performing Lab:[facility], [address] [place] [phone] Notes/Report: White Blood Count 8.3 4.8-10.8 X10*3/uL [...] NRBC Abs Auto 0.000 0.0-0.012 X10*3/uL Comprehensive [place]. Panel Fa st Reviewed date:05/14/2025 04:38:58 PM Interpretation: Performing Lab:[facility], [address] [place] [phone] Notes/Report: Sodium 139 135-145 mmol/L Potassium 4.3 [...] Panel Reviewed date:05/14/2025 04:38:04 PM Interpretation: Performing Lab:[address] [phone] Notes/Report: Triglycerides 67 <150 mg/dL Desirable Triglyceride: [...] (Free>4and<10) Reviewed date:05/14/2025 04:37:53 PM Interpretation: Performing Lab:[address] [address] Notes/Report: PSA,Total (Free>4and<10) 1.21 0.00-4.00 ng/mL A [...] t Reviewed date:05/14/2025 04:38:33 PM Interpretation: Performing Lab:[facility], [address] [place] [phone] Notes/Report: [id number] Urine, Clean Catch Color Urine Yellow Appearance Urine Clear PH 7.0 5.0-9.0 Glucose Urine UA Negative Negative mg/dL Urine Blood Negative Negative Specific Nettie - Urine <= 1.005 1.005-1.025 Urine Protein Negative Neg-Trace mg/dL Urine Ketones Negative Negative mg/dL Nitrite Urine Negative Negative Leukocyte Esterase Urine Negative Negative RBC Urine 0-2 0-2 /HPF WBC Urine 0-5 0-5 /HPF Squamous Epithelial Cell Urine 0-2 0-2 /HPF Bacteria Urine None Seen None Seen Hyaline Casts Urine 0-2 0-2 /LPF Reason For Referral Reason ? 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) Active confirmed Problem Loose body in right hip joint (8512187948836 02) Loose body in right hip (M24.051) Active confirmed Problem 92750777 Intrinsic eczema (L20.84) Active confirmed Problem 734794125 Elevated LDL cholesterol level (E78.00) Active confirmed Problem 57651125 DANIS (obstructive sleep apnea) (G47.33) Active confirmed Problem 395339520 Right facial numbness (R20.0) Active confirmed Problem 151564970 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) Active confirmed Problem 277905367 Diverticular disease (K57.90) Active confirmed Vital Signs Blood pressure diastolic 66 mm Hg 03/20/2025 Height 72 in 03/20/2025 Blood pressure systolic 104 mm Hg 03/20/2025 Weight 293 lbs 03/20/2025 BMI 39.73 kg/m2 03/20/2025 Encounters Encounter Location Date Provider Diagnosis Kong Brady MD [address] [place] [id number] 05/14/2025 Kong Brady Blood tests for routine general physical examination Z00.00 ; Elevated LDL cholesterol level E78.00 and Encounter for administration of vaccine Z23 Kong Brady MD [address] [place] [id number] 05/19/2024 Kong Brady Annual physical exam Z00.00 ; Intrinsic eczema L20.84 ; Elevated LDL cholesterol level E78.00 ; Colon cancer screening Z12.11 and Depression screening Z13.31 Kong Brady MD [address] [place] [id number] 09/04/2024 Kong Brady Infection of left ey e H44.002 Kong Brady MD [address] [place] [id number] 11/28/2024 Kong Brady Ear pain, right H92. 01 Kong Brady MD [address] [place] [id number] 01/05/2025 Kong Brady Torticollis, acute M43.6 Kong Brady MD [address] [place] [id number] 03/20/2025 Kong Brady Abnormal abdominal C T scan R93.5 Kong Brday MD [address] [place] [id number] 01/06/2025 Kong Brady Torticollis, acute M43.6 Kong Brady MD [address] [place] [id number] 03/16/2025 Kong Brady MD [address] [place], [place] [id number] 04/02/2025 Kong Brady Assessments Encounter Date Diagnosis (ICD Code) Assessment Notes Treatment Notes Treatment Clinical Notes Section Notes 05/14/2025 Blood tests for routine general physical examination (ICD-10 - Z00.00) 05/14/2025 Elevated LDL cholesterol level (ICD-10 - E78.00) 05/19/2024 Annual physical exam (ICD-10 - Z00.00) labs reviewed and discussed with patient, need colonoscopy report from dr lara/ REPORT REQUESTED FROM DR LARA OFFICE AND IT WAS RECEIVED 05/19/2024 Intrinsic [...] indicated 01/06/2025 Torticollis, acute (ICD-10 - M43.6) 05/14/2025 Encounter for administration of vaccine (ICD-10 - Z23) 05/19/2024 Elevated LDL cholesterol level (ICD-10 - [...] DOPPLER 05/17/2023 Next Appt Details Provider Name:Kong del real, 05/21/2025 08:30:00 AM, [address], [address], [place], [place], [id number], Insurance Providers Payer Name Payer Address Payer Phone Subscriber Number Group Number Insured Name Patient Relationship to Insured Coverage Start Date Coverage End Date [employer] [address] [place], [place] [id number] [phone] [id number] Juarez Ludwig Self - patient is the insured Medical (General) History Medical History History ICD Code Depression screening 06/22/14 colonoscopy 2022 repeat
== END 2025-05-14 12:43 | disposition home or self-care (01) ==
LOC: HO.LNP 12:42
PROVIDERS: Visit Provider Internal Medicine
DX: Z00.00 Encounter for general adult medical examination without abnormal findings (principal); Z12.5 Encounter for screening for malignant neoplasm of prostate; E78.00 Pure hypercholesterolemia, unspecified
CPT/HCPCS: 80053; 80061; 81001; 84153; 85025